=== PATIENT | female | born 1955 ===

== ENCOUNTER 2017-12-20 12:10 | Inpatient (IN) | payer BC ==
[2017-12-20 12:30] VITALS: BMI 23.8
--- NOTE | 2017-12-20 12:37 | ED PDOC ---
Arrival/HPI - General Chief Complaint: Medical Clearance Time Seen by Provider: 12/20/17 12:35 Historian: Patient Past Medical History - Provider Review Nursing Documentation Reviewed: Yes - Infectious Disease Hx of Infectious Diseases: None - Reproductive Menopause: Yes - Cardiac Hx Cardiac Disorders: Yes Hx Hypertension: Yes - Pulmonary Hx Respiratory Disorders: No - Neurological Hx Neurological Disorder: No - HEENT Hx HEENT Disorder: No - Renal Hx Renal Disorder: No - Endocrine/Metabolic Hx Endocrine Disorders: No - Hematological/Oncological Hx Blood Disorders: No - Integumentary Hx Dermatological Disorder: No - Musculoskeletal/Rheumatological Hx Musculoskeletal Disorders: No - Gastrointestinal Hx Gastrointestinal Disorders: No - Genitourinary/Gynecological Hx Genitourinary Disorders: No - Psychiatric Hx Anxiety: Yes Hx Bipolar Disorder: Yes Hx Depression: Yes Hx Substance Use: No - Surgical History Hx Orthopedic Surgery: Yes (left shoulder) - Anesthesia Hx Anesthesia: Yes Family/Social History - Physician Review Nursing Documentation Reviewed: Yes Family/Social History: Unknown Family HX Smoking Status: Never Smoked Hx Alcohol Use: Yes Frequency of alcohol use: Daily Hx Substance Use: No Allergies/Home Meds Allergies/Adverse Reactions: Allergies iodine Allergy (Intermediate, Verified 05/29/16 17:31) Home Medications: Home Meds Medication Instructions Recorded Confirmed Escitalopram [Lexapro] 20 mg PO HS 04/04/15 04/04/15 clonazePAM [clonAZEPAM] 1 mg PO BID 04/04/15 04/04/15 Physical Exam Vital Signs Reviewed: Yes Vital Signs Temp Pulse Resp BP Pulse Ox 12/20/17 12:25 98.6 F 152 H 20 106/72 99 Temperature: Afebrile Blood Pressure: Normal Pulse: Tachycardic Respiratory Rate: Normal Appearance: Positive for: Well-Appearing, Non-Toxic, Comfortable Pain Distress: None Mental Status: Positive for: Alert and Oriented X 3 Medical Decision Making ED Course and Treatment: 12/20/17 Impression: Plan: -- Reassess and disposition Progress Notes: - Scribe Statement The provider has reviewed the documentation as recorded by the Ester Arroyo Provider Scribe Attestation: All medical record entries made by the Scribe were at my direction and personally dictated by me. I have reviewed the chart and agree that the record accurately reflects my personal performance of the history, physical exam, medical decision making, and the department course for this patient. I have also personally directed, reviewed, and agree with the discharge instructions and disposition. Disposition/Present on Arrival - Present on Arrival History of DVT/PE: No History of Uncontrolled Diabetes: No Urinary Catheter: No History of Decub. Ulcer: No History Surgical Site Infection Following: None - Disposition
[2017-12-20] MEDS ORDERED: Sodium Chloride 0.9% 1,000 ML IV STA ×2 (12:50→19:52)
[2017-12-20 13:04] LABS: BASO # 0.03 K/mm3 (0.0-2.0); BASO % 0.5 % (0.0-3.0); EOS % 0.3 % (1.5-5.0); GRAN # 4.55 (1.4-6.5); GRAN % 71.3 % (50.0-68.0); LYMPH # 1.3 (1.2-3.4); MEAN CELL VOLUME 89.4 fl (80.0-105.0); MEAN CORPUSCULAR HEMOGLOBIN 32.5 pg (25.0-35.0); MEAN CORPUSCULAR HGB CONC 36.3 g/dl (31.0-37.0); MEAN PLATELET VOLUME 9.6 fl (7.0-11.0); MONO # 0.4 (0.1-0.6); MONO % 6.9 % (1.0-6.0); RBC 4.62 10^6/uL (3.5-6.1); RED CELL DISTRIBUTION WIDTH 14.8 % (11.5-14.5); WHITE BLOOD COUNT 6.4 10^3/ul (4.5-11.0)
[2017-12-20 13:09] LABS: CALCIUM 8.7 mg/dL (8.4-10.5); GFR AFRICAN-AMERICAN > 60; GFR NON-AFRICAN AMERICAN > 60
[2017-12-20 13:10] LABS: ACETAMINOPHEN < 10.0 ug/ml (10.0-20.0); SALICYLATE < 1 mg/dL (2.0-20.0)
[2017-12-20 13:12] LABS: ALT/SGPT 47 U/L (7-56); AST/SGOT 172 U/L (14-36); BLOOD UREA NITROGEN 12 mg/dL (7-21)
[2017-12-20 13:14] LABS: INR 1.02 (0.93-1.08); PARTIAL THROMBOPLASTIN TIME 29.8 Seconds (25.1-36.5); PROTHROMBIN TIME 11.7 SECONDS (9.4-12.5)
--- NOTE | 2017-12-20 13:24 | ED PDOC ---
Arrival/HPI - General Historian: Patient <Chema Lan - Last Filed: 12/20/17 16:21> - General Historian: Patient <Quiana Mishra - Last Filed: 12/20/17 20:51> - General Chief Complaint: Substance Abuse Time Seen by Provider: 12/20/17 12:35 - History of Present Illness Narrative History of Present Illness (Text): 62 year old female with PMH of alcohol abuse and prior suicide attempt from depression presents to the ED after taking at least 25 1 mg Xanax pills last night. Patient was feeling depressed because left her and her two daughters have not been speaking to her. She had planned to end her life last night by taking the xanax pills. After taking the xanax pills, she started to feel some left sided abdominal pain and 2-3 episodes of vomiting. Patient also reportedly has had blood in her urine for the past month. She never followed up with the physician who gave her this information. Patient presents today with nausea, but denies vomiting, diarrhea, and abdominal pain today. Patient denies any headache, loss of consciousness, fever, shortness of breath, and chest pain. (Quiana Mishra) Past Medical History - Provider Review Nursing Documentation Reviewed: Yes - Infectious Disease Hx of Infectious Diseases: None - Reproductive Menopause: Yes - Cardiac Hx Cardiac Disorders: Yes Hx Hypertension: Yes - Pulmonary Hx Respiratory Disorders: No - Neurological Hx Neurological Disorder: No - HEENT Hx HEENT Disorder: No - Renal Hx Renal Disorder: No - Endocrine/Metabolic Hx Endocrine Disorders: No - Hematological/Oncological Hx Blood Disorders: No - Integumentary Hx Dermatological Disorder: No - Musculoskeletal/Rheumatological Hx Musculoskeletal Disorders: No - Gastrointestinal Hx Gastrointestinal Disorders: No - Genitourinary/Gynecological Hx Genitourinary Disorders: No - Psychiatric Hx Anxiety: Yes Hx Bipolar Disorder: Yes Hx Depression: Yes Hx Substance Use: No - Surgical History Hx Orthopedic Surgery: Yes (left shoulder) - Anesthesia Hx Anesthesia: Yes <Quiana Mishra - Last Filed: 12/20/17 20:51> Family/Social History - Physician Review Nursing Documentation Reviewed: Yes Family/Social History: Unknown Family HX Smoking Status: Never Smoked Hx Alcohol Use: Yes Frequency of alcohol use: Daily Amount per day: 5 Hx Substance Use: No <Quiana Mishra - Last Filed: 12/20/17 20:51> Allergies/Home Meds <Chema Lan P - Last Filed: 12/20/17 16:21> <Quiana Mishra - Last Filed: 12/20/17 20:51> Allergies/Adverse Reactions: Allergies iodine Allergy (Intermediate, Verified 12/20/17 13:37) ANAPHYLAXIS Home Medications: Home Meds Medication Instructions Recorded Confirmed clonazePAM [clonAZEPAM] 1 mg PO BID 04/04/15 12/20/17 ALPRAZolam [Xanax] 1 tab PO DAILY 12/20/17 12/20/17 Review of Systems - Physician Review All systems were reviewed & negative as marked: Yes - Review of Systems Constitutional: Fatigue Eyes: Normal ENT: Normal Respiratory: Normal Cardiovascular: Normal Gastrointestinal: Abdominal Pain, Nausea, Vomiting, Anorexia Genitourinary Female: Hematuria Musculoskeletal: Normal Skin: Normal Neurological: Normal <Quiana Mishra - Last Filed: 12/20/17 20:51> Physical Exam Vital Signs Reviewed: Yes <Chema Lan P - Last Filed: 12/20/17 16:21> Vital Signs Reviewed: Yes Temperature: Afebrile Blood Pressure: Normal Pulse: Tachycardic Respiratory Rate: Normal Appearance: Positive for: Ill-Appearing Pain Distress: None Mental Status: Positive for: Alert and Oriented X 3 Finger Stick Blood Glucose: 117 - Systems Exam Head: Present: Atraumatic, Normocephalic Pupils: Present: PERRL, Other (dilated) Extroacular Muscles: Present: EOMI Conjunctiva: Present: Normal Mouth: Present: Moist Mucous Membranes Pharnyx: Present: Normal Nose (External): Present: Atraumatic Neck: Present: Normal Range of Motion Respiratory/Chest: Present: Clear to Auscultation Cardiovascular: Present: Tachycardic Abdomen: Present: Other (depressed bowel sounds). No: Tenderness, Distention Upper Extremity: Present: Normal Inspection, Normal ROM, NORMAL PULSES Lower Extremity: Present: Normal Inspection, NORMAL PULSES, Normal ROM Neurological: Present: GCS=15, CN II-XII Intact, Speech Normal, Motor Func Grossly Intact Psychiatric: Present: Alert, Oriented x 3, Normal Insight, Normal Concentration , Depressed Mood <Quiana Mishra - Last Filed: 12/20/17 20:51> Vital Signs Temp Pulse Resp BP Pulse Ox 12/20/17 17:23 90 18 128/81 98 12/20/17 15:45 90 18 130/84 97 12/20/17 12:54 98.7 F 108 H 17 118/95 H 99 12/20/17 12:25 98.6 F 152 H 20 106/72 99 Medical Decision Making - Lab Interpretations I have reviewed the lab results: Yes - EKG Interpretation Interpreted by ED Physician: Yes Type: 12 lead EKG <Chema Lan - Last Filed: 12/20/17 16:21> <Quiana Mishra - Last Filed: 12/20/17 20:51> ED Course and Treatment: 12/20/17 In agreement with resident note, which includes further HPI details. Patient was seen and evaluated with resident, came up with plan and treatment together. (Chema Lan) Impression: 62 year old female presents with overdose of at least 25 1mg Xanax pills who presents with a diffuse tremor. Assessment: Overdose of Xanax Rule out alcohol intoxication, alcohol withdrawal, opiate overdose, opiate withdrawal, multidrug overdose or withdrawal Plan: Patient was seen and examined by resident. Patient had a depressed mood and admitted she tried to kill herself last night, but denies having suicidal ideations today. Psychiatry will be consulted and she will be put on a 1:1 for her prior suicidal ideations, alcohol dependence, and xanax overdose. Due to patient's nausea, patient will receive zofran 4 mg. Due to potential overdose of xanax, a full urine drug screen, blood alcohol level, and EKG will be done to evaluate if she has taken any other medications and if they've had an effect on cardiac function. Poison control has been called to consult on the case to ensure the patient is stable. CBC and CMP will be done to evaluate for any change in electrolyte levels or blood counts after taking xanax and vomiting last night. Urinanalysis will be done due to the reported blood in her urine. IV NS 0.9% 1 L will be given due her dehydration status. 12/20/17 13:36 EKG was completed which showed normal sinus rhythm and minimal QTc prolongation in the 460s. No intervention needed for minimally prolonged QTc. 12/20/17 15:36 Urine toxicology was assessed. Patient was negative except for benzodiazepines ( Xanax). Patient had a very low blood alcohol level, acetaminophen, and salicylate level. Patient is stable, mildly tachycardic, and has a mild tremor. AST was elevated at 172. ALP was elevated at 176. 12/20/17 15:39 Poison control was called and told to wait an hour to reevaluate her one more time. Advised to not give her flumazenil. 12/20/17 20:51 Patient will be admitted to psychiatry for prior suicide attempt. (Quiana Mishra) - Lab Interpretations Lab Results: 12/20/17 12:50 12/20/17 12:50 Lab Results 12/20/17 13:34: Urine Opiates Screen Negative, Urine Methadone Screen Negative, Ur Barbiturates Screen Negative, Ur Phencyclidine Scrn Negative, Ur Amphetamines Screen Negative, U Benzodiazepines Scrn Positive H, U Oth Cocaine Metabols Negative, U Cannabinoids Screen Negative 12/20/17 13:34: Urine Color Dark yellow, Urine Appearance Sl cloudy, Urine pH 6.0, Ur Specific [place] >= 1.030, Urine Protein 100 H, Urine Glucose (UA) Negative, Urine Ketones 15 H, Urine Blood Moderate H, Urine Nitrate Negative, Urine Bilirubin Moderate H, Urine Urobilinogen 4.0 H, Ur Leukocyte Esterase Trace H, Urine RBC 0 - 2, Urine WBC 1 - 3, Ur Epithelial Cells 1 - 3, Urine Bacteria Few 12/20/17 13:20: Alcohol, Quantitative < 10 12/20/17 12:50: Salicylates < 1 L, Acetaminophen < 10.0 L 12/20/17 12:50: Sodium 139, Potassium 3.5 L, Chloride 98, Carbon Dioxide 23, Anion Gap 21 H, BUN 12, Creatinine 0.8, Est GFR ( Amer) > 60, Est GFR ( Non-Af Amer) > 60, Random Glucose 136 H, Calcium 8.7, Total Bilirubin 3.5 H, AST 172 H, ALT 47, Alkaline Phosphatase 176 H, Total Protein 7.9, Albumin 4.0, Globulin 3.9, Albumin/Globulin Ratio 1.0 L 12/20/17 12:50: PT 11.7, INR 1.02, APTT 29.8 12/20/17 12:50: WBC 6.4, RBC 4.62, Hgb 15.0, Hct 41.3, MCV 89.4, MCH 32.5, MCHC 36.3, RDW 14.8 H, Plt Count 228, MPV 9.6, Gran % 71.3 H, Lymph % (Auto) 21.0 L, [place] % (Auto) 6.9 H, Eos % (Auto) 0.3 L, Baso % (Auto) 0.5, Gran # 4.55, Lymph # (Auto) 1.3, [place] # (Auto) 0.4, Eos # (Auto) 0.0, Baso # (Auto) 0.03 - Medication Orders Current Medication Orders: Sodium Chloride (Sodium Chloride 0.9%) 1,000 mls @ 999 mls/hr IV .Q1H1M STA Stop: 12/20/17 20:52 Discontinued Medications Famotidine (Pepcid) 20 mg IVP STAT STA Stop: 12/20/17 15:33 Last Admin: 12/20/17 15:44 Dose: 20 mg IVP Administration Document 12/20/17 15:44 [facility] (Rec: 12/20/17 15:44 [facility] [id number]) Charges for Administration # of IVP Administrations 1 Sodium Chloride (Sodium Chloride 0.9%) 1,000 mls @ 999 mls/hr IV .Q1H1M STA Stop: 12/20/17 13:50 Last Admin: 12/20/17 13:06 Dose: 999 mls/hr eMAR Start Stop Document 12/20/17 13:06 [facility] [place] (Rec: 12/20/17 13:06 [facility] [id number]) Intravenous Solution Start Date 12/20/17 Start Time 13:00 End Date 12/20/17 End time 14:01 Total Infusion Time 61 Lorazepam (Ativan) 1 mg PO ONCE ONE PRN Reason: Protocol Stop: 12/20/17 15:32 Last Admin: 12/20/17 15:44 Dose: 1 mg Lorazepam (Ativan) 1 mg IVP ONCE ONE PRN Reason: Protocol Stop: 12/20/17 18:10 Last Admin: 12/20/17 18:43 Dose: 1 mg IVP Administration Document 12/20/17 18:43 [facility] [place] (Rec: 12/20/17 18:43 [facility] [id number]) Charges for Administration # of IVP Administrations 1 Ondansetron HCl (Zofran Inj) 4 mg IVP STAT STA Stop: 12/20/17 13:12 Last Admin: 12/20/17 13:19 Dose: 4 mg IVP Administration Document 12/20/17 13:19 [facility] [place] (Rec: 12/20/17 13:19 [facility] [id number]) Charges for Administration # of IVP Administrations 1 Ondansetron HCl (Zofran Inj) 4 mg IVP STAT STA Stop: 12/20/17 16:45 Last Admin: 12/20/17 17:19 Dose: 4 mg IVP Administration Document 12/20/17 17:19 [facility] (Rec: 12/20/17 17:19 [facility] [id number]) Charges for Administration # of IVP Administrations 1 - Scribe Statement The provider has reviewed the documentation as recorded by the Scribe <Chema Lan - Last Filed: 12/20/17 16:21> - PA / COMMUNITY ENGAGEMENT SPECIALIST / Resident Statement / has reviewed & agrees with the documentation as recorded. MD/ has examined the patient and agrees with the treatment plan. <Quiana Mishra - Last Filed: 12/20/17 20:51> - Scribe Statement Faiza Arroyo Provider Scribe Attestation: All medical record entries made by the Scribe were at my direction and personally dictated by me. I have reviewed the chart and agree that the record accurately reflects my personal performance of the history, physical exam, medical decision making, and the department course for this patient. I have also personally directed, reviewed, and agree with the discharge instructions and disposition. (Chema Lan) Disposition/Present on Arrival <Chema Lan - Last Filed: 12/20/17 16:21> - Present on Arrival Any Indicators Present on Arrival: No History of DVT/PE: No History of Uncontrolled Diabetes: No Urinary Catheter: No History of Decub. Ulcer: No History Surgical Site Infection Following: None - Disposition Have Diagnosis and Disposition been Completed?: Yes Disposition Time: 20:50 Patient Plan: Admission <Quiana Mishra - Last Filed: 12/20/17 20:51> - Disposition Diagnosis: Xanax use disorder, mild, abuse Disposition: HOSPITALIZED Patient Problems: Current Active Problems Problem Status Onset Xanax use disorder, mild, abuse Acute Condition: STABLE
[2017-12-20 13:43] LABS: URINE APPEARANCE SL CLOUDY (CLEAR); URINE BILIRUBIN MODERATE (NEGATIVE); URINE BLOOD MODERATE (NEGATIVE); URINE COLOR DARK YELLOW (YELLOW); URINE GLUCOSE (UA) NEGATIVE (NEGATIVE); URINE LEUKOCYTE ESTERASE TRACE Leu/uL (NEGATIVE); URINE PROTEIN 100 mg/dL (<30 mg/dL)
[2017-12-20 13:47] LABS: URINE BACTERIA FEW (NEG); URINE RBC 0 - 2 /hpf (0-2)
[2017-12-20 14:22] LABS: BARBITURATES, UR NEGATIVE (NEGATIVE); BENZODIAZEPINES, UR POSITIVE (NEGATIVE); OPIATES, UR NEGATIVE (NEGATIVE); PHENCYCLIDINE, UR NEGATIVE (NEGATIVE)
--- NOTE | 2017-12-20 17:00 | CARD ---
APPROVED REPORT Date of service: 12/20/2017 EKG Measurement Heart [id number] <Conclusion> Sinus tachycardia Possible Left atrial enlargement Cannot rule out Inferior infarct, age undetermined Abnormal ECG
[2017-12-20] MEDS ORDERED: Magnesium Hydroxide Susp 30 ml UD PO PRN (22:06)
[2017-12-21 03:14] VITALS: O2SAT 97
[2017-12-21] MEDS: Alum-Mag Hydrox-Simethicone Susp (30 mL) PO PRN ×2 (04:57→20:35)
--- NOTE | 2017-12-21 06:32 | PCM.BM ---
<Thomas Smith O - Last Filed: 12/21/17 06:31> Treatment Plan Problems - Problems identified on initial assessmt Anxiety Date Initiated: 12/20/17 Time Initiated: 22:00 Assessment reference: NA Status: Active Hoplesness Date Initiated: 12/20/17 Time Initiated: 22:00 Assessment reference: NA Status: Active Treatment assets and liabiliti Patient Assests: cooperative, ADL independent, good interpersonal skills Patient Liabilities: poor support system - Milieu Protocol Maintain good personal hygiene: daily Encourage regular showers, daily Remind patient to perform daily oral care, daily Assist patient to perform ADL's Maintain personal safety: daily Educate patient to report safety concerns to staff, daily Monitor environment for contraband/sharps Medication safety: Monitor for expected outcome, potential side effects: daily, Assess barriers to learning: daily, Assess readiness for medication education: daily Family Contact Family involvement: Patient does not wish Family/SO involvement Discharge/Continuing Care - Education Needs Education Needs: Patient Medication, Patient Diagnosis/Disease Process, Patient Coping Skills - Discharge Discharge Criteria: Free of Suicidal thoughts, Normal sleep pattern <Heather Hills Y - Last Filed: 12/22/17 08:33> Family Contact Family involvement: Famliy/SO not involved <Gloria Peoples A - Last Filed: 12/25/17 09:20> - Diagnosis (1) MDD (major depressive disorder) Status: Acute Interventions: 12/25/17 09:20 Psychoeducation Psychopharmacology/adjustment of medications as needed/ monitoring possible side effects Evaluate pt on daily basis Compliance with medications and follow up appointments Suicide and homicide risk assessment and prevention Relapse prevention Reduction of symptoms Improve functional status Family involvement As outpatient: cognitive behavioral therapy (2) Alcohol use disorder Status: Acute Interventions: 12/25/17 09:20 Monitoring withdrawal symptoms Medical detoxification Pharmacotherapy for alcohol/benzos/opioid dependence Maintaining sobriety Relapse prevention Possible rehabilitation Motivational interviewing 12-step programs: AA meetings (3) DESTINEE (generalized anxiety disorder) Status: Acute Interventions: 12/25/17 09:20 Psychoeducation Psychopharmacology/adjustment of medications as needed/ monitoring possible side effects Evaluate pt on daily basis Discussion of importance of being compliant with medications and follow up appointments Suicide and homicide risk assessment and prevention, coping strategies, safety plan Reduction of symptoms Relaxation techniques and breathing exercises Improve functional status Family involvement Cognitive behavioral therapy as outpatient
[2017-12-21 07:40] LABS: HDL CHOLESTEROL 31 mg/dL (29-60)
[2017-12-21 07:59] LABS: LDL CHOLESTEROL < 30 mg/dL (0-129)
[2017-12-21] MEDS: Pantoprazole 20 mg EC Tab PO SCH ×2 (10:34→18:22)
[2017-12-21] MEDS: Multivitamin Therapeutic Tab PO SCH (10:34)
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
[2017-12-21] MEDS: Lubricant Eye Drops UD OU SCH ×3 (13:16→22:01)
[2017-12-21] MEDS: Tobramycin/Dexamethasone (Tobradex) Opth Sol (2.5 ml) OU SCH (18:23)
--- NOTE | 2017-12-21 23:01 | PN ---
DATE: 12/21/2017 SUBJECTIVE: The patient was admitted to the Behavioral Care Unit for depression. This patient is a 62-year-old female. She presented in the emergency room with depression. She also had pain in the left lower quadrant of the abdomen. She also has pain in the left shoulder. She has past history of hypertension. She has past history of atherosclerotic heart disease. She also has history of hyperlipidemia, history of alcoholism, and suicidal tendency. The patient was seen this afternoon on consultation. The patient is able to ambulate. She is pleasant, talks and answers all questions. She is complaining of burning sensation in both eyes currently. The patient also has tearing from both eyes, and she states she has pain on the left side of the face. PHYSICAL EXAMINATION VITAL SIGNS: The patient is afebrile. Pulse is 70, blood pressure 119/80, respirations are 20, O2 sat is 97% on room air, temperature 98.1. HEENT: The patient's head is normocephalic. Examination of the eyes, the patient shows evidence of mild redness in the conjunctiva. There is discharge in both eyes and the patient's vision on casual examination has no deficits noted at this time. She has blurred vision on the left eye, she says. LUNGS: Trachea central. Breath sounds are vesicular. No adventitious sounds. HEART: Normal sinus rhythm. S1 and S2 present. No murmurs. ABDOMEN: Soft. Liver and spleen not palpable. CENTRAL NERVOUS SYSTEM: No focal neurological deficits are noted. LABORATORY DATA: The patient's blood work done yesterday shows hemoglobin A1C of 5.4. The patient's cholesterol is 294, triglyceride 1532. The patient's liver enzymes are within normal range except the alkaline phosphatase is slightly elevated. The patient's CBC, white count is 6400, differential is within normal range. The patient's urinalysis, there is evidence of bilirubin in the urine. She also has evidence of blood in the urine, and WBC is only from 0 to 2. This does not suggest that the patient has any infection at this time, but the patient might have a [employer] problem or hematuria associated with renal problem. MEDICATIONS: The patient was placed on TobraDex eye drops on both eyes, one drop every 8 hours, and we will continue current management. We will place the patient on heart-healthy diet and place on statin. The list of medications that the patient is on at this time, the patient gets Ativan, folic acid. The patient is on Paxil, pantoprazole. We will add Lipitor 20 mg daily and we will also add medication for triglyceride elevation. The patient's condition is clinically acute. Behavioral condition is acute. Medical condition needs medical treatment for the conjunctivitis that appears to be present at this time. We will follow up. Vale Puentes MD TR[facility]
[2017-12-22] MEDS: Pantoprazole 20 mg EC Tab PO SCH ×2 (06:19→17:46)
[2017-12-22 07:56] LABS: BLOOD UREA NITROGEN 6 mg/dL (7-21); CALCIUM 8.9 mg/dL (8.4-10.5); GFR AFRICAN-AMERICAN > 60; GFR NON-AFRICAN AMERICAN > 60
[2017-12-22] MEDS: Multivitamin Therapeutic Tab PO SCH (09:04)
[2017-12-22] MEDS ORDERED: Potassium Chloride 20 mEq ER Tab PO ONE (09:10)
[2017-12-22] MEDS: Tobramycin/Dexamethasone (Tobradex) Opth Sol (2.5 ml) OU SCH ×3 (09:15→18:08)
--- NOTE | 2017-12-22 09:58 | PCM.PYCHPN ---
<Bekah Hardy - Last Filed: 12/22/17 10:20> Psychiatric Progress Note - Psychiatric Progress Note Patient seen today, length of contact: 30 mins Patient Chief Complaint: My and I are not together and all my kids took his side. I was just staying home taking care of my dog for the past 2 weeks, sleeping all day. I was drinking a whole bottle of pinot grigio every day and Klonopin. I just decided one day to keep taking Xanax because I felt like it didnt matter anymore. I was going to call my friend and tell her to come get my dog but then I started feeling sick so I called her to bring me to the hospital. Medical Problems: ?psoriatic arthritis Diagnostic Results: Vital Signs Temp Pulse Resp BP Pulse Ox 12/22/17 06:56 98 F 67 19 130/82 12/21/17 07:38 98.1 F 70 20 119/80 12/21/17 05:24 18 12/20/17 21:26 85 18 128/81 97 12/20/17 17:23 90 18 128/81 98 12/20/17 15:45 90 18 130/84 97 12/20/17 12:54 98.7 F 108 H 17 118/95 H 99 12/20/17 12:25 98.6 F 152 H 20 106/72 99 12/20/17 12:50 12/22/17 07:00 Lab Results 12/22/17 07:00: Sodium 144, Potassium 3.3 L, Chloride 103, Carbon Dioxide 31, Anion Gap 14, BUN 6 L, Creatinine 0.8, Est GFR ( Amer) > 60, Est GFR (Non -Af Amer) > 60, Random Glucose 98, Calcium 8.9 12/21/17 07:00: Hemoglobin A1c 5.4 12/21/17 07:00: Triglycerides 1532 H, Cholesterol 294 H, LDL Cholesterol Direct < 30, HDL Cholesterol 31 12/20/17 13:34: Urine Opiates Screen Negative, Urine Methadone Screen Negative, Ur Barbiturates Screen Negative, Ur Phencyclidine Scrn Negative, Ur Amphetamines Screen Negative, U Benzodiazepines Scrn Positive H, U Oth Cocaine Metabols Negative, U Cannabinoids Screen Negative 12/20/17 13:34: Urine Color Dark yellow, Urine Appearance Sl cloudy, Urine pH 6.0, Ur Specific [place] >= 1.030, Urine Protein 100 H, Urine Glucose (UA) Negative, Urine Ketones 15 H, Urine Blood Moderate H, Urine Nitrate Negative, Urine Bilirubin Moderate H, Urine Urobilinogen 4.0 H, Ur Leukocyte Esterase Trace H, Urine RBC 0 - 2, Urine WBC 1 - 3, Ur Epithelial Cells 1 - 3, Urine Bacteria Few 12/20/17 13:20: Alcohol, Quantitative < 10 12/20/17 12:50: Salicylates < 1 L, Acetaminophen < 10.0 L 12/20/17 12:50: Sodium 139, Potassium 3.5 L, Chloride 98, Carbon Dioxide 23, Anion Gap 21 H, BUN 12, Creatinine 0.8, Est GFR ( Amer) > 60, Est GFR ( Non-Af Amer) > 60, Random Glucose 136 H, Calcium 8.7, Total Bilirubin 3.5 H, AST 172 H, ALT 47, Alkaline Phosphatase 176 H, Total Protein 7.9, Albumin 4.0, Globulin 3.9, Albumin/Globulin Ratio 1.0 L 12/20/17 12:50: PT 11.7, INR 1.02, APTT 29.8 12/20/17 12:50: WBC 6.4, RBC 4.62, Hgb 15.0, Hct 41.3, MCV 89.4, MCH 32.5, MCHC 36.3, RDW 14.8 H, Plt Count 228, MPV 9.6, Gran % 71.3 H, Lymph % (Auto) 21.0 L, [place] % (Auto) 6.9 H, Eos % (Auto) 0.3 L, Baso % (Auto) 0.5, Gran # 4.55, Lymph # (Auto) 1.3, [place] # (Auto) 0.4, Eos # (Auto) 0.0, Baso # (Auto) 0.03 DSM 5 Symptoms Update: Rosetta Wagn is a 62 yo female with a history of alcohol use disorder and depression who was brought to the ED by her friend after overdosing on Xanax and alcohol. The patient reports being increasingly depressed over the past 2 weeks. She states this is primarily due to her ex- and her fighting. She says they got about a year ago, but they were trying to work things out in October. She says this was going well for a little while until she found out he was with another woman. They then got into a verbal altercation and he left. The patient also says that all of her kids and the grandkid that she raised have taken his side and stopped talking to her. For the past 2 weeks, the patient says she has been staying home in bed all day sleeping and drinking alcohol. She says the only thing she got up to do was feed her dog, who she describes as the only thing she lives for. She says he did not plan to commit suicide, but 2 days ago, after drinking a whole bottle of wine, she started taking Xanax one at a time to feel relief. She then says at one point, she thought I dont care, and she continued to take the pills. She thought about leaving a message with her friend to take care of her dog. When she finished nearly the whole bottle of Xanax (she estimates 20-25 pills), she started feeling physically ill with abdominal pain and nausea, so she called her friend to bring her to the hospital. When asked how she feels about being alive now, she responds, Im not ecstatic but there are things that I need to do like take care of my house. She also says she has mixed feelings about suicide because she was raised [employer]ianism. She appears to be remorseful about the event. She currently denies SI. Patient is seen this morning in the dining room. She states that she had some trouble sleeping. She is also complaining about stomach pain. She presents with improved grooming/hygiene from yesterday. She says she is motivated to get better. She is compliant and tolerating medications well without side effects. Her appetite is good. The hospitalist saw the patient yesterday. She started a statin and fenofibrate for the patients cholesterol/TG. The patient was also diagnosed with conjunctivitis and tobramycin/dexamethasone was started. The patient is still complaining of itchy eyes and discharge. The patient was instructed to wash her hands frequently and change her pillowcase daily. Medical student obtained collateral from the patients friend, Jessica, who brought her to the ED: She states that the patients anxiety and depression symptoms are not new and have persisted for years. However, she says they have worsened considerably since the patients divorce with the her , approximately 8 months ago. The divorce also caused strain on the relationship with the patients children. Prior to the divorce, the friend claims that the patient was much more outgoing and that her only anxiety stemmed from the patients concerns for her UTIs. Also, she claims the patient has never drank as much alcohol as she did before the divorce. The friend also says that the patient has expressed transient thoughts of harming herself recently, but they never seemed severe/serious. She also noted that the patient has one suicide attempt via overdose 1-2 yrs ago. The friend also confirmed that the patient was the one who initiated the visit to the hospital by calling and asking her to bring her to the hospital after she overdosed on Xanax and alcohol. Medication Change: No Medical Record Reviewed: Yes Consults ordered or reviewed: medicine Mental Status Examination - Cognitive Function Orientation: Person, Place, Situation, Time Memory: Intact Attention: WNL Concentration: WNL Association: WNL Fund of Knowledge: WN Decription of patient's judgement and insights: good insight and judgment - Mood Mood: Depressed (but improved from admission) - Affect Affect: Constricted - Speech Speech: Appropriate, Soft - Formal Thought Process Formal Thought Process: No Impairment - Suicidal Ideation Suicidal Ideation: No - Homicidal Ideation Homicidal Ideation: No Goal/Treatment Plan - Goal/Treatment Plan Need for Continued Stay: Remain at risks for inpatient hospitalization, Severe depression anxiety, Discharge may exacerbated symptoms, Severe functional impairment Progress Toward Problem(s) and Goals/Treatment Plan: 1. Paxil 10 mg for depression and anxiety 2. Remeron 15 mg qhs prn for mood, sleep, and appetite- required yesterday (12/21 ) 3. Sonata 5 mg qhs prn for sleep- required yesterday (12/21) 4. Ativan 2 mg qid for withdrawal, anxiety 3. Ativan 2 mg q6hrs prn for withdrawal, anxiety 4. Zofran 4 mg q8hrs prn for nausea 5. Protonix 20 mg bid for GERD 5. Maalox 30 mL daily prn for dyspepsia- required yesterday (12/21) 6. Multivitamin, folic acid 1 mg, thiamine 100 mg daily for chronic alcohol use 7. Medicine consult - Atorvastatin 20 daily with dinner - Fenofribrate 145 mg daily - Potassium Chloride 20 mEQ once - Tobradex 1 mL OU tid - Artificial tears 0.3 mL OU qid Milieu and group therapy SW consult for discharge planning Patient was educated about risk/benefits and alternatives of medications, coping strategies (safety plan, suicide prevention), relapse prevention, importance of follow up with psychiatrist and therapist, stay away from drugs/ alcohol/smoking. Estimated Date of D/C: 12/25/17 - Smoking Cessation Smoking Cessation Initiated: No Reason for not providing: Patient denies tobacco use. <Gloria Peoples - Last Filed: 12/22/17 15:04> Psychiatric Progress Note - Psychiatric Progress Note Medical Problems: patient was seen by medical team, consult appreciated, please see notes more detailed information Diagnostic Results: Vital Signs Temp Pulse Resp BP Pulse Ox 12/22/17 06:56 98 F 67 19 130/82 12/21/17 07:38 98.1 F 70 20 119/80 12/21/17 05:24 18 12/20/17 21:26 85 18 128/81 97 12/20/17 17:23 90 18 128/81 98 12/20/17 15:45 90 18 130/84 97 12/20/17 12:54 98.7 F 108 H 17 118/95 H 99 12/20/17 12:25 98.6 F 152 H 20 106/72 99 DSM 5 Symptoms Update: patient was followed up today in her room, patient presented with some improvement with her symptoms, obviously tries itchiness better, patient was seen by medical team, antibiotics eyedrops was started, patient also was started on medication for dyslipidemia and liver enzymes, patient also had low potassium level which was supplemented by potassium by medical team, please see notes for more detailed information. USG of abdomen and liver ordered by medical team. Collaterals were obtained from patient friend please see above. Patient complained that she was not able to fall asleep and stay asleep but patient rationalized that fact that it was her first night in the unit and pt did not get used to the new environment. pt still has transient thoughts of hopelessness, helplessness. Denied thoughts of harming herself or others. so far patient tolerates medications well, no side effects observed or reported , aims 0, no EPS. Patient does not have any physical signs of withdrawals, vital signs are within normal limits. Medication Change: Yes (paxil increased, sonata increased) Mental Status Examination - Cognitive Function Attention: Poor (with some improvement) Concentration: Poor (some improvement) - Mood Mood: Anxious - Affect Affect: Constricted (t times reactive) - Formal Thought Process Formal Thought Process: Other (thought process is over inclusive) Goal/Treatment Plan - Goal/Treatment Plan Progress Toward Problem(s) and Goals/Treatment Plan: Paxil was increased to 20 mg at the nighttime and Sonata was increased to 10 mg at the nighttime
--- NOTE | 2017-12-22 11:20 | CP.PCM.PN ---
Subjective - Date & Time of Evaluation Date of Evaluation: 12/22/17 Time of Evaluation: 10:50 - Subjective Subjective: Patient is seen this morning. She complains of generalized weakness. Objective - Vital Signs/Intake and Output Vital Signs (last 24 hours): Temp Pulse Resp BP Pulse Ox 98 F 67 19 130/82 97 12/22/17 06:56 12/22/17 06:56 12/22/17 06:56 12/22/17 06:56 12/20/17 21:26 - Medications Medications: Current Medications Acetaminophen (Tylenol 325mg Tab) 325 mg PO Q6H PRN PRN Reason: Pain, Mild (1-3) Last Admin: 12/20/17 22:48 Dose: 325 mg Al Hydrox/Mg Hydrox/Simethicone (Maalox Plus 30 Ml) 30 ml PO DAILY PRN PRN Reason: Dyspepsia Last Admin: 12/21/17 20:35 Dose: 30 ml Artificial Tears (Refresh Opth Soln) 0.3 ml OU QID [facility] Last Admin: 12/21/17 22:01 Dose: 0.3 ml Atorvastatin Calcium (Lipitor) 20 mg PO DIN [facility] Fenofibrate (Tricor) 145 mg PO DAILY [facility] Last Admin: 12/22/17 09:04 Dose: 145 mg Folic Acid (Folic Acid) 1 mg PO DAILY [facility] Last Admin: 12/22/17 09:04 Dose: 1 mg Lorazepam (Ativan) 2 mg PO QID [facility]ETH PRN Reason: Protocol Last Admin: 12/22/17 09:04 Dose: 2 mg Lorazepam (Ativan) 2 mg PO Q6H PRN; Protocol PRN Reason: anxiety/agitation Magnesium Hydroxide (Milk Of Magnesia) 30 ml PO DAILY PRN PRN Reason: Constipation Mirtazapine (Remeron) 15 mg PO HS PRN PRN Reason: insomnia/depression Last Admin: 12/22/17 00:54 Dose: 15 mg Multivitamins (Thera Tab) 1 tab PO 0800 [facility] Last Admin: 12/22/17 09:04 Dose: 1 tab Ondansetron HCl (Zofran Tab) 4 mg PO Q8H PRN PRN Reason: Nausea/Vomiting Last Admin: 12/21/17 08:32 Dose: 4 mg Pantoprazole Sodium (Protonix Ec Tab) 20 mg PO 0600,1600 [facility] Last Admin: 12/22/17 06:19 Dose: 20 mg Paroxetine HCl (Paxil) 10 mg PO HS [facility] Last Admin: 12/21/17 21:52 Dose: 10 mg Potassium Chloride (K-Dur 20 Meq Er Tab) 20 meq PO BRK [facility] Thiamine HCl (Vitamin B1 Tab) 100 mg PO DAILY [facility] Last Admin: 12/22/17 09:04 Dose: 100 mg Tobramycin/Dexamethasone (Tobradex Opht Susp) 1 ml OU TID [facility] Last Admin: 12/22/17 09:15 Dose: 1 drop Zaleplon (Sonata) 5 mg PO HS PRN PRN Reason: Insomnia Last Admin: 12/21/17 21:52 Dose: 5 mg - Labs Labs: 12/22/17 07:00 PT 11.7 SECONDS (9.4-12.5) 12/20/17 12:50 INR 1.02 (0.93-1.08) 12/20/17 12:50 APTT 29.8 Seconds (25.1-36.5) 12/20/17 12:50 - Constitutional Appears: No Acute Distress - Cardiovascular Exam Cardiovascular Exam: +S1, +S2 - GI/Abdominal Exam GI & Abdominal Exam: Soft. absent: Tenderness Assessment and Plan - Assessment and Plan (Free Text) Assessment: History of alcohol abuse Elevated liver enzymes Hyperlipidemia/hypertriglyceridemia Hypokalemia Plan: Potassium has been replaced. Liver enzymes are elevated and blood seen in urine. Will order ultrasound of abdomen to check liver and kidney. Repeat urinalysis. continue psychiatric care
[2017-12-22] MEDS: Lubricant Eye Drops UD OU SCH ×4 (12:03→21:29)
--- NOTE | 2017-12-22 14:40 | US ---
Date of service: 12/22/2017 HISTORY: abnormal liver enzymes, hematuria, COMPARISON: None. TECHNIQUE: Grayscale imaging was performed. FINDINGS: LIVER: Measures 18.6 cm. There is diffuse increased echogenicity of the liver parenchyma. No mass. No intrahepatic bile duct dilatation. GALLBLADDER: There are no gallstones, wall thickening or pericholecystic fluid. The sonographic Mcneal's sign is negative. COMMON BILE DUCT: Measures 3.8 mm. No stones. No dilatation. PANCREAS: Unremarkable as visualized. No mass. No ductal dilatation. RIGHT KIDNEY: Measures 8.2cm. Normal echogenicity. No calculus, mass, or hydronephrosis. LEFT KIDNEY: Measures 9.6cm. Normal echogenicity. No calculus, mass, or hydronephrosis. SPLEEN: Normal in size and contour. No mass. AORTA: No aneurysmal dilatation. IVC: Unremarkable. OTHER FINDINGS: None. IMPRESSION: Mild hepatomegaly. Diffuse increased echogenicity in the liver may reflect hepatic steatosis however parenchymal infectious/ inflammatory etiologies cannot be entirely excluded. Clinical and laboratory correlation is advised. No cholelithiasis or biliary dilatation.
[2017-12-22 21:37] LABS: URINE APPEARANCE CLEAR (CLEAR); URINE BILIRUBIN NEGATIVE (NEGATIVE); URINE BLOOD TRACE-INTACT (NEGATIVE); URINE COLOR YELLOW (YELLOW); URINE GLUCOSE (UA) NEGATIVE (NEGATIVE); URINE LEUKOCYTE ESTERASE NEGATIVE Leu/uL (NEGATIVE); URINE PROTEIN NEGATIVE mg/dL (<30 mg/dL); URINE UROBILINOGEN 0.2 E.U./dL (<1 E.U./dL)
[2017-12-22 21:52] LABS: URINE RBC 0 - 2 /hpf (0-2); URINE WBC NEGATIVE /hpf (0-6)
[2017-12-23] MEDS: Pantoprazole 20 mg EC Tab PO SCH ×2 (06:34→17:16)
[2017-12-23] MEDS ORDERED: Potassium Chloride 20 mEq ER Tab PO SCH (08:00)
[2017-12-23 08:07] LABS: ALB/GLOB RATIO 1.1 (1.1-1.8); ALBUMIN 3.8 g/dL (3.0-4.8); ALT/SGPT 53 U/L (7-56); AST/SGOT 101 U/L (14-36); BILIRUBIN,DIRECT 0.4 mg/dL (0.0-0.4); BLOOD UREA NITROGEN 9 mg/dL (7-21); CALCIUM 9.4 mg/dL (8.4-10.5); GFR AFRICAN-AMERICAN > 60; GFR NON-AFRICAN AMERICAN > 60
[2017-12-23] MEDS: Multivitamin Therapeutic Tab PO SCH (09:00)
[2017-12-23] MEDS: Lubricant Eye Drops UD OU SCH ×4 (09:01→21:23)
[2017-12-23] MEDS: Tobramycin/Dexamethasone (Tobradex) Opth Sol (2.5 ml) OU SCH ×3 (09:01→17:17)
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
--- NOTE | 2017-12-23 17:27 | CP.PCM.PN ---
Subjective - Date & Time of Evaluation Date of Evaluation: 12/23/17 Time of Evaluation: 08:00 - Subjective Subjective: Patient's eye is improving. Objective - Vital Signs/Intake and Output Vital Signs (last 24 hours): Temp Pulse Resp BP Pulse Ox 98.0 F 116 H 20 108/73 97 12/23/17 07:10 12/23/17 16:00 12/23/17 07:10 12/23/17 16:00 12/20/17 21:26 - Medications Medications: Current Medications Acetaminophen (Tylenol 325mg Tab) 325 mg PO Q6H PRN PRN Reason: Pain, Mild (1-3) Last Admin: 12/20/17 22:48 Dose: 325 mg Al Hydrox/Mg Hydrox/Simethicone (Maalox Plus 30 Ml) 30 ml PO DAILY PRN PRN Reason: Dyspepsia Last Admin: 12/21/17 20:35 Dose: 30 ml Artificial Tears (Refresh Opth Soln) 0.3 ml OU QID [facility] Last Admin: 12/23/17 17:17 Dose: 0.3 ml Atorvastatin Calcium (Lipitor) 20 mg PO DIN [facility] Last Admin: 12/23/17 17:16 Dose: 20 mg Fenofibrate (Tricor) 145 mg PO DAILY [facility] Last Admin: 12/23/17 09:00 Dose: 145 mg Folic Acid (Folic Acid) 1 mg PO DAILY [facility] Last Admin: 12/23/17 09:01 Dose: 1 mg Lorazepam (Ativan) 2 mg PO Q6H PRN; Protocol PRN Reason: anxiety/agitation Lorazepam (Ativan) 2 mg PO TID ELIZABETH PRN Reason: Protocol Last Admin: 12/23/17 17:16 Dose: 2 mg Magnesium Hydroxide (Milk Of Magnesia) 30 ml PO DAILY PRN PRN Reason: Constipation Mirtazapine (Remeron) 15 mg PO HS PRN PRN Reason: insomnia/depression Last Admin: 12/23/17 02:08 Dose: 15 mg Multivitamins (Thera Tab) 1 tab PO 0800 [facility] Last Admin: 12/23/17 09:00 Dose: 1 tab Ondansetron HCl (Zofran Tab) 4 mg PO Q8H PRN PRN Reason: Nausea/Vomiting Last Admin: 12/21/17 08:32 Dose: 4 mg Pantoprazole Sodium (Protonix Ec Tab) 20 mg PO 0600,1600 [facility] Last Admin: 12/23/17 17:16 Dose: 20 mg Paroxetine HCl (Paxil) 30 mg PO HS ELIZABETH Thiamine HCl (Vitamin B1 Tab) 100 mg PO DAILY [facility] Last Admin: 12/23/17 09:00 Dose: 100 mg Tobramycin/Dexamethasone (Tobradex Opht Susp) 1 ml OU TID [facility] Last Admin: 12/23/17 17:17 Dose: 1 drop Zaleplon (Sonata) 10 mg PO HS PRN PRN Reason: Insomnia Last Admin: 12/22/17 21:28 Dose: 10 mg - Labs Labs: 12/23/17 07:30 PT 11.7 SECONDS (9.4-12.5) 12/20/17 12:50 INR 1.02 (0.93-1.08) 12/20/17 12:50 APTT 29.8 Seconds (25.1-36.5) 12/20/17 12:50 - Constitutional Appears: No Acute Distress - Respiratory Exam Respiratory Exam: Clear to Ausculation Bilateral, NORMAL BREATHING PATTERN - Cardiovascular Exam Cardiovascular Exam: +S1, +S2 - GI/Abdominal Exam GI & Abdominal Exam: Soft, Normal Bowel Sounds. absent: Tenderness - Neurological Exam Neurological Exam: Alert, Awake, Oriented x3 Assessment and Plan - Assessment and Plan (Free Text) Assessment: Conjunctivitis Elevated liver enzymes History of alcohol abuse Major depression Anxiety disorder Plan: Conjunctivitis of eye is improving. continue Tobradex eye drops. Potassium is now normalized. Will discontinue daily potassium supplementation. Liver enzymes trending downward. Repeat enzymes.
[2017-12-24] MEDS: Pantoprazole 20 mg EC Tab PO SCH ×2 (08:01→16:36)
[2017-12-24 08:08] LABS: ALB/GLOB RATIO 1.1 (1.1-1.8); ALBUMIN 3.4 g/dL (3.0-4.8); ALT/SGPT 56 U/L (7-56); AST/SGOT 95 U/L (14-36); BLOOD UREA NITROGEN 10 mg/dL (7-21); CALCIUM 9.3 mg/dL (8.4-10.5); GFR AFRICAN-AMERICAN > 60; GFR NON-AFRICAN AMERICAN > 60
[2017-12-24] MEDS: Multivitamin Therapeutic Tab PO SCH (10:14)
[2017-12-24] MEDS: Tobramycin/Dexamethasone (Tobradex) Opth Sol (2.5 ml) OU SCH ×3 (10:15→18:05)
[2017-12-24] MEDS: Lubricant Eye Drops UD OU SCH ×4 (10:16→21:22)
--- NOTE | 2017-12-24 10:19 | PN ---
DATE: 12/24/2017 LOCATION: The patient is in Behavioral Care Unit, [facility] in [place]. SUBJECTIVE: The patient was admitted with depression. The patient had abdominal pain. The patient seen this morning. She is complaining of nausea. She is awake and alert, got very nervous and anxious about her clinical condition. PHYSICAL EXAMINATION: VITAL SIGNS: The pulse is 97, blood pressure 116/76. The patient's respirations are 20, temperature 97.7. HEENT: The patient had eye infection, for which the patient is getting TobraDex, that is improving. The patient's head is normocephalic. NECK: The thyroid is not enlarged. No lymphadenopathy. LUNGS: Trachea central. Breath sounds are vesicular. No adventitious sounds. HEART: Normal sinus rhythm. S1 and S2 present. ABDOMEN: Soft. There is some tenderness in the epigastric area and left upper quadrant. The patient has no localizing signs in the abdomen. CENTRAL NERVOUS SYSTEM: She is conscious, rationale, seemed to be very afraid of her clinical condition, but she has been reassured that her clinical condition is improving. LABORATORY DATA: The patient has fatty liver based on the findings by ultrasound. The patient's urinalysis is repeated went up, infection present in the urine. The patient's laboratory test: the white count is 6400 that was the original count. The patient's chemistry, the last chemistry done this morning. The patient's liver enzymes are within normal range. AST was 172, it is 95 now. The patient's GFR is within normal range. Blood sugar is 91. The patient's lipids are not repeated. We will follow up, do a repeat tomorrow. MEDICATIONS: The patient is on Ativan 2 mg every 6 hours p.r.n. The patient is also on Ativan 2 mg t.i.d. The patient is on folic acid 1 mg. The patient is on magnesium that is milk of magnesia for constipation, Paxil 30 mg daily, pantoprazole 20 mg daily. The patient is on Remeron 15 mg daily and Sonata 10 mg daily for sleep. The patient is also getting TobraDex eyedrops, TriCor for hypertriglyceridemia. The patient is on thiamine for alcohol abuse of recent onset. The patient is on Zofran for nausea. We will continue current management and follow up. Vale Puentes MD [facility] # [id number]
--- NOTE | 2017-12-24 12:44 | PCM.PYCHPN ---
<Bekah Hardy - Last Filed: 12/24/17 14:26> Psychiatric Progress Note - Psychiatric Progress Note Patient seen today, length of contact: 30 mins Patient Chief Complaint: Im doing ok. Im feeling pretty anxious. Im also concerned about the pressure I feel in my head and sometimes I feel dizzy. Problems Identified/Issues Discussed: Suicide/ homicide prevention, past psychiatric h/o, current psychiatric symptoms , medical problems, risk/benefits and alternatives of medications, medications compliance, coping strategies, substance abuse h/o, relapse prevention, importance of follow up with psychiatrist and therapist, discharge plan. Medical Problems: ?psoriatic arthritis Diagnostic Results: Vital Signs Temp Pulse Resp BP Pulse Ox 12/22/17 06:56 98 F 67 19 130/82 12/21/17 07:38 98.1 F 70 20 119/80 12/21/17 05:24 18 12/20/17 21:26 85 18 128/81 97 12/20/17 17:23 90 18 128/81 98 12/20/17 15:45 90 18 130/84 97 12/20/17 12:54 98.7 F 108 H 17 118/95 H 99 12/20/17 12:25 98.6 F 152 H 20 106/72 99 12/20/17 12:50 12/22/17 07:00 Lab Results 12/22/17 07:00: Sodium 144, Potassium 3.3 L, Chloride 103, Carbon Dioxide 31, Anion Gap 14, BUN 6 L, Creatinine 0.8, Est GFR ( Amer) > 60, Est GFR (Non -Af Amer) > 60, Random Glucose 98, Calcium 8.9 12/21/17 07:00: Hemoglobin A1c 5.4 12/21/17 07:00: Triglycerides 1532 H, Cholesterol 294 H, LDL Cholesterol Direct < 30, HDL Cholesterol 31 12/20/17 13:34: Urine Opiates Screen Negative, Urine Methadone Screen Negative, Ur Barbiturates Screen Negative, Ur Phencyclidine Scrn Negative, Ur Amphetamines Screen Negative, U Benzodiazepines Scrn Positive H, U Oth Cocaine Metabols Negative, U Cannabinoids Screen Negative 12/20/17 13:34: Urine Color Dark yellow, Urine Appearance Sl cloudy, Urine pH 6.0, Ur Specific [place] >= 1.030, Urine Protein 100 H, Urine Glucose (UA) Negative, Urine Ketones 15 H, Urine Blood Moderate H, Urine Nitrate Negative, Urine Bilirubin Moderate H, Urine Urobilinogen 4.0 H, Ur Leukocyte Esterase Trace H, Urine RBC 0 - 2, Urine WBC 1 - 3, Ur Epithelial Cells 1 - 3, Urine Bacteria Few 12/20/17 13:20: Alcohol, Quantitative < 10 12/20/17 12:50: Salicylates < 1 L, Acetaminophen < 10.0 L 12/20/17 12:50: Sodium 139, Potassium 3.5 L, Chloride 98, Carbon Dioxide 23, Anion Gap 21 H, BUN 12, Creatinine 0.8, Est GFR ( Amer) > 60, Est GFR ( Non-Af Amer) > 60, Random Glucose 136 H, Calcium 8.7, Total Bilirubin 3.5 H, AST 172 H, ALT 47, Alkaline Phosphatase 176 H, Total Protein 7.9, Albumin 4.0, Globulin 3.9, Albumin/Globulin Ratio 1.0 L 12/20/17 12:50: PT 11.7, INR 1.02, APTT 29.8 12/20/17 12:50: WBC 6.4, RBC 4.62, Hgb 15.0, Hct 41.3, MCV 89.4, MCH 32.5, MCHC 36.3, RDW 14.8 H, Plt Count 228, MPV 9.6, Gran % 71.3 H, Lymph % (Auto) 21.0 L, [place] % (Auto) 6.9 H, Eos % (Auto) 0.3 L, Baso % (Auto) 0.5, Gran # 4.55, Lymph # (Auto) 1.3, [place] # (Auto) 0.4, Eos # (Auto) 0.0, Baso # (Auto) 0.03 Temp Pulse Resp BP Pulse Ox 98.0 F 111 H 20 116/73 97 12/23/17 07:10 12/23/17 07:10 12/23/17 07:10 12/23/17 07:10 12/20/17 21:26 Temp Pulse Resp BP Pulse Ox 97.7 F 97 H 20 116/76 97 12/24/17 07:08 12/24/17 07:08 12/24/17 07:08 12/24/17 07:08 12/20/17 21:26 DSM 5 Symptoms Update: Rosetta Wang is a 62 yo female with a history of alcohol use disorder and depression who was brought to the ED by her friend after overdosing on Xanax and alcohol. The patient reports being increasingly depressed over the past 2 weeks. She states this is primarily due to her ex- and her fighting. She says they got about a year ago, but they were trying to work things out in October. She says this was going well for a little while until she found out he was with another woman. They then got into a verbal altercation and he left. The patient also says that all of her kids and the grandkid that she raised have taken his side and stopped talking to her. For the past 2 weeks, the patient says she has been staying home in bed all day sleeping and drinking alcohol. She says the only thing she got up to do was feed her dog, who she describes as the only thing she lives for. She says he did not plan to commit suicide, but 2 days ago, after drinking a whole bottle of wine, she started taking Xanax one at a time to feel relief. She then says at one point, she thought I dont care, and she continued to take the pills. She thought about leaving a message with her friend to take care of her dog. When she finished nearly the whole bottle of Xanax (she estimates 20-25 pills), she started feeling physically ill with abdominal pain and nausea, so she called her friend to bring her to the hospital. When asked how she feels about being alive now, she responds, Im not ecstatic but there are things that I need to do like take care of my house. She also says she has mixed feelings about suicide because she was raised Alevism. She appears to be remorseful about the event. She currently denies SI. Patient is seen this morning in the conference room. She has acceptable grooming /hygiene and is dressed in casual clothing. She reports that she is very anxious. She also has several somatic complaints- dizziness, sinus pressure, and GI upset. She does say she slept well last night. She denies withdrawal symptoms, such as tremors. She presents as emotionally labile and is frequently tearful throughout the interview. She is future-oriented and discusses taking care of her medical issues. Her appetite is good. She is observed in the milieu interacting with others. The patient is compliant with medications and tolerating them well without side effects. Impression: Major depression disorder Generalized anxiety disorder Alcohol use disorder r/o substance-induced mood disorder r/o adjustment disorder r/o panic disorder Medication Change: Yes (decreased Ativan, increased Remeron) Medical Record Reviewed: Yes Consults ordered or reviewed: medicine Mental Status Examination - Cognitive Function Orientation: Person, Place, Situation, Time Memory: Intact Attention: WNL Concentration: WNL Association: WNL Fund of Knowledge: WN Decription of patient's judgement and insights: good insight, fair judgment - Mood Mood: Depressed, Anxious - Affect Affect: Constricted (at times reactive) - Speech Speech: Appropriate, Soft - Formal Thought Process Formal Thought Process: Other (thought process is over inclusive) - Suicidal Ideation Suicidal Ideation: No - Homicidal Ideation Homicidal Ideation: No Goal/Treatment Plan - Goal/Treatment Plan Need for Continued Stay: Severe depression anxiety, Discharge may exacerbated symptoms, Severe functional impairment Progress Toward Problem(s) and Goals/Treatment Plan: 1. Paxil 20 mg for depression and anxiety 2. Remeron 30 mg qhs prn for mood, sleep, and appetite- required past 3 days 3. Sonata 10 mg qhs prn for sleep- required past 2 days 4. Ativan 1.5 mg bid, 2 mg qhs for withdrawal, anxiety 3. Ativan 2 mg q6hrs prn for withdrawal, anxiety 4. Zofran 4 mg q8hrs prn for nausea- required 12/21 5. Protonix 20 mg bid for GERD 5. Maalox 30 mL daily prn for dyspepsia- required 12/21 6. Multivitamin, folic acid 1 mg, thiamine 100 mg daily for chronic alcohol use 7. Medicine consult - Atorvastatin 20 daily with dinner - Fenofribrate 145 mg daily - Potassium Chloride 20 mEQ daily - Tobradex 1 mL OU tid - Artificial tears 0.3 mL OU qid Family involvement (cousin) Milieu and group therapy SW consult for discharge planning Patient was educated about risk/benefits and alternatives of medications, coping strategies (safety plan, suicide prevention), relapse prevention, importance of follow up with psychiatrist and therapist, stay away from drugs/ alcohol/smoking. Estimated Date of D/C: 12/28/17 If changed, why: medication changes, continue to monitor - Smoking Cessation Smoking Cessation Initiated: No Reason for not providing: Patient denies tobacco use <Gloria Peoples - Last Filed: 12/24/17 16:22> Psychiatric Progress Note - Psychiatric Progress Note DSM 5 Symptoms Update: patient was seen with medical student as well as in turn, patient presented with improved personal hygiene, patient easily tearful, seems to be depressed, he shouldn't reported that her sleep improved, patient reported that she has pressure in her sinus, patient also reported that she at times have dizziness and lightheadedness, edical team was notified. Patient agreed to increase the dose of Remeron as well as starting tapering off Ativan. so far patient tolerates medications well, no side effects observed or reported , aims 0, no EPS. Goal/Treatment Plan - Goal/Treatment Plan Progress Toward Problem(s) and Goals/Treatment Plan: Paxil 30 mg Remeron 30 mg Patient will be followed up with medical team
[2017-12-25] MEDS: Pantoprazole 20 mg EC Tab PO SCH ×2 (05:09→16:57)
[2017-12-25] MEDS: Multivitamin Therapeutic Tab PO SCH (09:44)
--- NOTE | 2017-12-25 09:44 | PN ---
DATE: 12/25/2017 LOCATION: The patient is in [facility] in [place]. She is admitted to the Behavioral Care Unit. SUBJECTIVE: She was admitted with depression. The patient had history of alcoholism. The patient also has history of abdominal pain, hyperlipidemia and elevated triglycerides. The patient has been evaluated for cardiac condition in the past. She states she has had a stress test. This morning, she is complaining of some congestion and discomfort in the front of the head and she is worried about tumor in the brain. I reassured her that we are going to get an x-ray and check it out. PHYSICAL EXAMINATION: VITAL SIGNS: Pulse is 98, blood pressure 132/81, respirations are 20, O2 sat is 98% on room air. The patient's temperature is 97.8 as mentioned. HEENT: The patient's head is normocephalic. The face appears to be normal. There is some mild congestion in both eyes. LUNGS: Clear. HEART: Normal sinus rhythm. ABDOMEN: Soft. There is some tenderness in the left upper quadrant. CENTRAL NERVOUS SYSTEM: The patient has no focal deficits. MEDICATIONS: Consists of Ativan, the patient is getting that 3 times a day. The patient is on folic acid, thiamine. The patient is on Protonix. The patient is on Paxil 30 mg daily. The patient is on Remeron 30 mg at bedtime. The patient is on for sleep, which is Sonata. The patient is also getting TobraDex eyedrops 3 times a day to both eyes. If eye condition seem to be improving, we will discontinue the TobraDex. The patient is getting Zithromax for sinus infection, TriCor 145 mg daily for triglyceride elevation. Condition seem to be improving, but she still has complaints about her head and face. We will continue current management and we will follow up. Vale Puentes MD
[2017-12-25] MEDS: Lubricant Eye Drops UD OU SCH ×4 (10:54→22:13)
[2017-12-25] MEDS: Tobramycin/Dexamethasone (Tobradex) Opth Sol (2.5 ml) OU SCH ×3 (10:55→17:35)
--- NOTE | 2017-12-25 13:59 | PCM.PYCHPN ---
<Bekah Hardy - Last Filed: 12/25/17 14:06> Psychiatric Progress Note - Psychiatric Progress Note Patient seen today, length of contact: 30 mins Patient Chief Complaint: Im so-so. I had a panic attack around 5 AM. Problems Identified/Issues Discussed: Suicide/ homicide prevention, past psychiatric h/o, current psychiatric symptoms , medical problems, risk/benefits and alternatives of medications, medications compliance, coping strategies, substance abuse h/o, relapse prevention, importance of follow up with psychiatrist and therapist, discharge plan. Medical Problems: ?psoriatic arthritis Diagnostic Results: Vital Signs Temp Pulse Resp BP Pulse Ox 12/22/17 06:56 98 F 67 19 130/82 12/21/17 07:38 98.1 F 70 20 119/80 12/21/17 05:24 18 12/20/17 21:26 85 18 128/81 97 12/20/17 17:23 90 18 128/81 98 12/20/17 15:45 90 18 130/84 97 12/20/17 12:54 98.7 F 108 H 17 118/95 H 99 12/20/17 12:25 98.6 F 152 H 20 106/72 99 12/20/17 12:50 12/22/17 07:00 Lab Results 12/22/17 07:00: Sodium 144, Potassium 3.3 L, Chloride 103, Carbon Dioxide 31, Anion Gap 14, BUN 6 L, Creatinine 0.8, Est GFR ( Amer) > 60, Est GFR (Non -Af Amer) > 60, Random Glucose 98, Calcium 8.9 12/21/17 07:00: Hemoglobin A1c 5.4 12/21/17 07:00: Triglycerides 1532 H, Cholesterol 294 H, LDL Cholesterol Direct < 30, HDL Cholesterol 31 12/20/17 13:34: Urine Opiates Screen Negative, Urine Methadone Screen Negative, Ur Barbiturates Screen Negative, Ur Phencyclidine Scrn Negative, Ur Amphetamines Screen Negative, U Benzodiazepines Scrn Positive H, U Oth Cocaine Metabols Negative, U Cannabinoids Screen Negative 12/20/17 13:34: Urine Color Dark yellow, Urine Appearance Sl cloudy, Urine pH 6.0, Ur Specific [place] >= 1.030, Urine Protein 100 H, Urine Glucose (UA) Negative, Urine Ketones 15 H, Urine Blood Moderate H, Urine Nitrate Negative, Urine Bilirubin Moderate H, Urine Urobilinogen 4.0 H, Ur Leukocyte Esterase Trace H, Urine RBC 0 - 2, Urine WBC 1 - 3, Ur Epithelial Cells 1 - 3, Urine Bacteria Few 12/20/17 13:20: Alcohol, Quantitative < 10 12/20/17 12:50: Salicylates < 1 L, Acetaminophen < 10.0 L 12/20/17 12:50: Sodium 139, Potassium 3.5 L, Chloride 98, Carbon Dioxide 23, Anion Gap 21 H, BUN 12, Creatinine 0.8, Est GFR ( Amer) > 60, Est GFR ( Non-Af Amer) > 60, Random Glucose 136 H, Calcium 8.7, Total Bilirubin 3.5 H, AST 172 H, ALT 47, Alkaline Phosphatase 176 H, Total Protein 7.9, Albumin 4.0, Globulin 3.9, Albumin/Globulin Ratio 1.0 L 12/20/17 12:50: PT 11.7, INR 1.02, APTT 29.8 12/20/17 12:50: WBC 6.4, RBC 4.62, Hgb 15.0, Hct 41.3, MCV 89.4, MCH 32.5, MCHC 36.3, RDW 14.8 H, Plt Count 228, MPV 9.6, Gran % 71.3 H, Lymph % (Auto) 21.0 L, [place] % (Auto) 6.9 H, Eos % (Auto) 0.3 L, Baso % (Auto) 0.5, Gran # 4.55, Lymph # (Auto) 1.3, [place] # (Auto) 0.4, Eos # (Auto) 0.0, Baso # (Auto) 0.03 Temp Pulse Resp BP Pulse Ox 98.0 F 111 H 20 116/73 97 12/23/17 07:10 12/23/17 07:10 12/23/17 07:10 12/23/17 07:10 12/20/17 21:26 Temp Pulse Resp BP Pulse Ox 97.7 F 97 H 20 116/76 97 12/24/17 07:08 12/24/17 07:08 12/24/17 07:08 12/24/17 07:08 12/20/17 21:26 Temp Pulse Resp BP Pulse Ox 97.8 F 98 H 20 132/81 97 12/25/17 07:17 12/25/17 07:17 12/25/17 07:17 12/25/17 07:17 12/20/17 21:26 DSM 5 Symptoms Update: Rosteta Wang is a 62 yo female with a history of alcohol use disorder and depression who was brought to the ED by her friend after overdosing on Xanax and alcohol. The patient reports being increasingly depressed over the past 2 weeks. She states this is primarily due to her ex- and her fighting. She says they got about a year ago, but they were trying to work things out in October. She says this was going well for a little while until she found out he was with another woman. They then got into a verbal altercation and he left. The patient also says that all of her kids and the grandkid that she raised have taken his side and stopped talking to her. For the past 2 weeks, the patient says she has been staying home in bed all day sleeping and drinking alcohol. She says the only thing she got up to do was feed her dog, who she describes as the only thing she lives for. She says he did not plan to commit suicide, but 2 days ago, after drinking a whole bottle of wine, she started taking Xanax one at a time to feel relief. She then says at one point, she thought I dont care, and she continued to take the pills. She thought about leaving a message with her friend to take care of her dog. When she finished nearly the whole bottle of Xanax (she estimates 20-25 pills), she started feeling physically ill with abdominal pain and nausea, so she called her friend to bring her to the hospital. When asked how she feels about being alive now, she responds, Im not ecstatic but there are things that I need to do like take care of my house. She also says she has mixed feelings about suicide because she was raised [place]. She appears to be remorseful about the event. She currently denies SI. Patient is seen this morning in her room. She appears with good grooming/ hygiene dressed in casual clothing. She says this morning was hard for her as she had a panic attack around 5 AM- she says she has had multiple since being here but this is the first time she has reported it. The patient is feeling a little anxious about going home next week, but she admits that she needs to get back to her life. She also continues to be concerned over the results of her liver ultrasound. She has been sleeping and eating well. She denies withdrawal symptoms, such as tremors. She is observed in the milieu interacting with others ; however, she only has passive participation in groups. The patient is compliant with medications and tolerating them well without side effects. Impression: Major depression disorder Generalized anxiety disorder Alcohol use disorder r/o substance-induced mood disorder r/o adjustment disorder r/o panic disorder Medication Change: Yes (increased Ativan) Medical Record Reviewed: Yes Consults ordered or reviewed: medicine Mental Status Examination - Cognitive Function Orientation: Person, Place, Situation, Time Memory: Intact Attention: WNL Concentration: WNL Association: WNL Fund of Knowledge: WN Decription of patient's judgement and insights: good insight, fair judgment - Mood Mood: Depressed, Anxious - Affect Affect: Constricted (at times reactive) - Speech Speech: Appropriate - Formal Thought Process Formal Thought Process: No Impairment, Other (thought process is over inclusive) - Suicidal Ideation Suicidal Ideation: No - Homicidal Ideation Homicidal Ideation: No Goal/Treatment Plan - Goal/Treatment Plan Need for Continued Stay: Severe depression anxiety, Discharge may exacerbated symptoms, Severe functional impairment Progress Toward Problem(s) and Goals/Treatment Plan: 1. Paxil 20 mg for depression and anxiety 2. Remeron 30 mg qhs prn for mood, sleep, and appetite- not required >3 days 3. Sonata 10 mg qhs prn for sleep- not required >3 days 4. Ativan 2 mg bid, 2 mg qhs for withdrawal, anxiety 3. Ativan 2 mg q6hrs prn for withdrawal, anxiety- required x1 12/25 4. Zofran 4 mg q8hrs prn for nausea- required 12/21, 12/25 5. Protonix 20 mg bid for GERD 5. Maalox 30 mL daily prn for dyspepsia- required 12/21 6. Multivitamin, folic acid 1 mg, thiamine 100 mg daily for chronic alcohol use 7. Medicine consult- recs appreciated Family involvement (cousin) Milieu and group therapy SW consult for discharge planning Patient was educated about risk/benefits and alternatives of medications, coping strategies (safety plan, suicide prevention), relapse prevention, importance of follow up with psychiatrist and therapist, stay away from drugs/ alcohol/smoking. Estimated Date of D/C: 12/28/17 - Smoking Cessation Smoking Cessation Initiated: No Reason for not providing: Patient denies tobacco use. <Gloria Peoples - Last Filed: 12/25/17 15:25> Psychiatric Progress Note - Psychiatric Progress Note DSM 5 Symptoms Update: Agree with assessment and plan, patient is very needy, at the same time there anxious and depressed. He shouldn't was seen by medical team, input appreciated patient complain of panic attacks, shaky, Ativan will be increased back Consults ordered or reviewed: patient complained of sinus pressure, x-ray was ordered by medical team will follow up on results. Goal/Treatment Plan - Goal/Treatment Plan Progress Toward Problem(s) and Goals/Treatment Plan: gree with this assessment and plan
--- NOTE | 2017-12-25 15:12 | RAD ---
Date of service: 12/25/2017 PROCEDURE: Sinuses HISTORY: sinus COMPARISON: TECHNIQUE: Four views FINDINGS: The sinuses are clear. No bony abnormalities seen IMPRESSION: Negative study
[2017-12-26] MEDS: Pantoprazole 20 mg EC Tab PO SCH ×2 (06:16→17:21)
[2017-12-26] MEDS: Lubricant Eye Drops UD OU SCH ×4 (09:39→21:48)
[2017-12-26] MEDS: Multivitamin Therapeutic Tab PO SCH (09:40)
[2017-12-26] MEDS: Tobramycin/Dexamethasone (Tobradex) Opth Sol (2.5 ml) OU SCH (09:42)
--- NOTE | 2017-12-26 12:49 | PN ---
DATE: 12/26/2017 SUBJECTIVE: Patient is in [facility], room 518, bed 1. She was admitted with depression, abdominal pain. Patient has history of recent binge alcoholism. Patient has had anxiety in the past. Patient is seen this morning. She still complains of nausea, abdominal discomfort and some discomfort in the left eye. PHYSICAL EXAMINATION: VITAL SIGNS: This morning, the pulse is 78, blood pressure 100/56, respirations are 20, patient's O2 sat is 98% on room air. HEENT: Head is normocephalic. The eyes appears to be within normal range excepting the fact that she has minimal congestion of the left eye. The conjunctiva is clear and cornea is within normal range. NECK: Thyroid is not enlarged. JVP is flat. Carotid pulses are present. LUNGS: Trachea central. Breath sounds are vesicular. No adventitious sounds. HEART: Normal sinus rhythm. S1, S2 present. No murmurs. CENTRAL NERVOUS SYSTEM: Conscious, rational, oriented. No focal deficits are noted. ABDOMEN: There is some minimal tenderness in the epigastric area. MEDICATIONS: Consist of Ativan 3 times a day and the patient is on Claritin 10 mg daily for allergy. Patient is on folic acid 1 mg daily, thiamine. The patient is on Lipitor. The patient is on Zithromax 250 mg, that is a 5-day course, that will be completed. Patient's TobraDex to the eye will be reduced to just 1 drop in each eye from now on to the next few days. She is also getting TriCor 145 mg daily because of elevation of triglycerides. ASSESSMENT AND PLAN: Patient also has elevation of cholesterol. We will follow up on that. Repeat the chemistry on the patient. Condition seemed to be clinically improving, but patient still has some acute symptoms. We will follow up. Vale Puentes MD
--- NOTE | 2017-12-26 13:30 | PCM.PYCHPN ---
Psychiatric Progress Note - Psychiatric Progress Note Patient seen today, length of contact: 30 mins Patient Chief Complaint: "I had another panic attack" Problems Identified/Issues Discussed: Suicide/ homicide prevention, past psychiatric h/o, current psychiatric symptoms , medical problems, risk/benefits and alternatives of medications, medications compliance, coping strategies, substance abuse h/o, relapse prevention, importance of follow up with psychiatrist and therapist, discharge plan. Medical Problems: patient was seen by medical team, consult appreciated, please see notes more detailed information Diagnostic Results: Vital Signs Temp Pulse Resp BP Pulse Ox 12/22/17 06:56 98 F 67 19 130/82 12/21/17 07:38 98.1 F 70 20 119/80 12/21/17 05:24 18 12/20/17 21:26 85 18 128/81 97 12/20/17 17:23 90 18 128/81 98 12/20/17 15:45 90 18 130/84 97 12/20/17 12:54 98.7 F 108 H 17 118/95 H 99 12/20/17 12:25 98.6 F 152 H 20 106/72 99 XR of sinus is WNL DSM 5 Symptoms Update: Rosetta Wang is a 62 yo female with a history of alcohol use disorder and depression who was brought to the ED by her friend after overdosing on Xanax and alcohol. please see initial assessment for more detailed information. pt was seen and examined in her room, patient still withdrawn, self isolative, patient tolerates medications well, at times patient has nausea, no vomiting no diarrhea, patient had x-ray of the sinuses, came back within normal limits, patient reported that she had another panic attack at the nighttime, reports that she scared for discharge, patient reported her depression is still there but "I have future plans, I want to put my life back together". As per staff patient is visible on the unit, trying to attend groups. Patient seems to have good med compliance, no agitation or aggression. patient tolerates medications well, no side effects observed or reported, aims 0 , no EPS. Impression: Major depression disorder Generalized anxiety disorder Alcohol use disorder r/o substance-induced mood disorder r/o adjustment disorder r/o panic disorder Medication Change: Yes (Paxil increased) Medical Record Reviewed: Yes Consults ordered or reviewed: patient complained of sinus pressure, x-ray came back within normal limits Mental Status Examination - Cognitive Function Orientation: Person, Place, Situation, Time Memory: Intact Attention: WNL Concentration: WNL Association: WNL Fund of Knowledge: WNL - Mood Mood: Depressed, Anxious - Affect Affect: Constricted (at times reactive) - Speech Speech: Appropriate - Formal Thought Process Formal Thought Process: No Impairment, Other (thought process is over inclusive) - Suicidal Ideation Suicidal Ideation: No - Homicidal Ideation Homicidal Ideation: No Goal/Treatment Plan - Goal/Treatment Plan Need for Continued Stay: Severe depression anxiety, Discharge may exacerbated symptoms, Severe functional impairment Progress Toward Problem(s) and Goals/Treatment Plan: 1. Paxil 40 mg for depression and anxiety 2. Remeron 30 mg qhs prn for mood, sleep, and appetite- not required >3 days 3. Sonata 10 mg qhs prn for sleep- not required >3 days 4. Ativan 2 mg bid, 2 mg qhs for withdrawal, anxiety 3. Ativan 2 mg q6hrs prn for withdrawal, anxiety- required x1 12/25 4. Zofran 4 mg q8hrs prn for nausea- required 12/21, 12/25 5. Protonix 20 mg bid for GERD 5. Maalox 30 mL daily prn for dyspepsia- required 12/21 6. Multivitamin, folic acid 1 mg, thiamine 100 mg daily for chronic alcohol use 7. Medicine consult- recs appreciated Family involvement (cousin) Milieu and group therapy SW consult for discharge planning Patient was educated about risk/benefits and alternatives of medications, coping strategies (safety plan, suicide prevention), relapse prevention, importance of follow up with psychiatrist and therapist, stay away from drugs/ alcohol/smoking. Estimated Date of D/C: 12/28/17
[2017-12-27] MEDS: Pantoprazole 20 mg EC Tab PO SCH ×2 (06:05→17:19)
[2017-12-27 07:47] LABS: BASO # 0.03 K/mm3 (0.0-2.0); BASO % 0.6 % (0.0-3.0); EOS # 0.2 (0.0-0.7); EOS % 2.8 % (1.5-5.0); GRAN # 2.76 (1.4-6.5); GRAN % 51.7 % (50.0-68.0); HEMOGLOBIN 11.4 g/dL (12.0-16.0); LYMPH # 1.9 (1.2-3.4); LYMPH % 34.8 % (22.0-35.0); MEAN CELL VOLUME 95.4 fl (80.0-105.0); MEAN CORPUSCULAR HGB CONC 32.5 g/dl (31.0-37.0); MEAN PLATELET VOLUME 10.2 fl (7.0-11.0); MONO # 0.5 (0.1-0.6); MONO % 10.1 % (1.0-6.0); RBC 3.68 10^6/uL (3.5-6.1); RED CELL DISTRIBUTION WIDTH 16.3 % (11.5-14.5); WHITE BLOOD COUNT 5.3 10^3/ul (4.5-11.0)
[2017-12-27 08:16] LABS: ALB/GLOB RATIO 1.2 (1.1-1.8); ALBUMIN 3.8 g/dL (3.0-4.8); ALT/SGPT 55 U/L (7-56); AST/SGOT 79 U/L (14-36); BLOOD UREA NITROGEN 14 mg/dL (7-21); CALCIUM 9.7 mg/dL (8.4-10.5); GFR AFRICAN-AMERICAN > 60; GFR NON-AFRICAN AMERICAN > 60; HDL CHOLESTEROL 59 mg/dL (29-60)
[2017-12-27 08:19] LABS: LDL CHOLESTEROL 110 mg/dL (0-129)
[2017-12-27] MEDS: Tobramycin/Dexamethasone (Tobradex) Opth Sol (2.5 ml) OU SCH (09:04)
[2017-12-27] MEDS: Multivitamin Therapeutic Tab PO SCH (09:06)
--- NOTE | 2017-12-27 10:47 | PCM.PYCHPN ---
Psychiatric Progress Note - Psychiatric Progress Note Patient seen today, length of contact: 30 mins Patient Chief Complaint: "I feel overwhelmed about discharge" Problems Identified/Issues Discussed: Suicide/ homicide prevention, past psychiatric h/o, current psychiatric symptoms , medical problems, risk/benefits and alternatives of medications, medications compliance, coping strategies, substance abuse h/o, relapse prevention, importance of follow up with psychiatrist and therapist, discharge plan. Medical Problems: patient was seen by medical team, consult appreciated, please see notes more detailed information Diagnostic Results: Vital Signs Temp Pulse Resp BP Pulse Ox 12/22/17 06:56 98 F 67 19 130/82 12/21/17 07:38 98.1 F 70 20 119/80 12/21/17 05:24 18 12/20/17 21:26 85 18 128/81 97 12/20/17 17:23 90 18 128/81 98 12/20/17 15:45 90 18 130/84 97 12/20/17 12:54 98.7 F 108 H 17 118/95 H 99 12/20/17 12:25 98.6 F 152 H 20 106/72 99 XR of sinus is WNL 12/27/17 07:00 12/27/17 07:00 Lab Results 12/27/17 07:00: Sodium 147, Potassium 4.4, Chloride 105, Carbon Dioxide 31, Anion Gap 15, BUN 14, Creatinine 0.8, Est GFR ( Amer) > 60, Est GFR (Non- Af Amer) > 60, Random Glucose 94, Calcium 9.7, Total Bilirubin 0.7, AST 79 H, ALT 55, Alkaline Phosphatase 72, Total Protein 7.0, Albumin 3.8, Globulin 3.2, Albumin/Globulin Ratio 1.2, Triglycerides 79, Cholesterol 203 H, LDL Cholesterol Direct 110, HDL Cholesterol 59 12/27/17 07:00: WBC 5.3, RBC 3.68, Hgb 11.4 L D, Hct 35.1 L, MCV 95.4 D, MCH 31.0, MCHC 32.5, RDW 16.3 H, Plt Count 320, MPV 10.2, Gran % 51.7, Lymph % (Auto ) 34.8, [place] % (Auto) 10.1 H, Eos % (Auto) 2.8, Baso % (Auto) 0.6, Gran # 2.76, Lymph # (Auto) 1.9, [place] # (Auto) 0.5, Eos # (Auto) 0.2, Baso # (Auto) 0.03 12/24/17 07:45: Sodium 145, Potassium 4.5, Chloride 106, Carbon Dioxide 32, Anion Gap 12, BUN 10, Creatinine 0.8, Est GFR ( Amer) > 60, Est GFR (Non- Af Amer) > 60, Random Glucose 91, Calcium 9.3, Total Bilirubin 0.8, AST 95 H, ALT 56, Alkaline Phosphatase 87, Total Protein 6.5, Albumin 3.4, Globulin 3.1, Albumin/Globulin Ratio 1.1 12/23/17 07:30: Sodium 145, Potassium 4.3, Chloride 104, Carbon Dioxide 30, Anion Gap 15, BUN 9, Creatinine 0.8, Est GFR ( Amer) > 60, Est GFR (Non- Af Amer) > 60, Random Glucose 111 H, Calcium 9.4, Total Bilirubin 1.0, Direct Bilirubin 0.4, AST 101 H D, ALT 53, Alkaline Phosphatase 116, Total Protein 7.1 , Albumin 3.8, Globulin 3.3, Albumin/Globulin Ratio 1.1 12/22/17 21:15: Urine Color Yellow, Urine Appearance Clear, Urine pH 6.0, Ur Specific [place] <= 1.005, Urine Protein Negative, Urine Glucose (UA) Negative, Urine Ketones Negative, Urine Blood Trace-intact H, Urine Nitrate Negative, Urine Bilirubin Negative, Urine Urobilinogen 0.2, Ur Leukocyte Esterase Negative , Urine RBC 0 - 2, Urine WBC Negative, Ur Epithelial Cells None, Urine Bacteria None 12/22/17 07:00: Sodium 144, Potassium 3.3 L, Chloride 103, Carbon Dioxide 31, Anion Gap 14, BUN 6 L, Creatinine 0.8, Est GFR ( Amer) > 60, Est GFR (Non -Af Amer) > 60, Random Glucose 98, Calcium 8.9 12/21/17 07:00: Hemoglobin A1c 5.4 12/21/17 07:00: Triglycerides 1532 H, Cholesterol 294 H, LDL Cholesterol Direct < 30, HDL Cholesterol 31 12/20/17 13:34: Urine Opiates Screen Negative, Urine Methadone Screen Negative, Ur Barbiturates Screen Negative, Ur Phencyclidine Scrn Negative, Ur Amphetamines Screen Negative, U Benzodiazepines Scrn Positive H, U Oth Cocaine Metabols Negative, U Cannabinoids Screen Negative 12/20/17 13:34: Urine Color Dark yellow, Urine Appearance Sl cloudy, Urine pH 6.0, Ur Specific [place] >= 1.030, Urine Protein 100 H, Urine Glucose (UA) Negative, Urine Ketones 15 H, Urine Blood Moderate H, Urine Nitrate Negative, Urine Bilirubin Moderate H, Urine Urobilinogen 4.0 H, Ur Leukocyte Esterase Trace H, Urine RBC 0 - 2, Urine WBC 1 - 3, Ur Epithelial Cells 1 - 3, Urine Bacteria Few 12/20/17 13:20: Alcohol, Quantitative < 10 12/20/17 12:50: Salicylates < 1 L, Acetaminophen < 10.0 L 12/20/17 12:50: Sodium 139, Potassium 3.5 L, Chloride 98, Carbon Dioxide 23, Anion Gap 21 H, BUN 12, Creatinine 0.8, Est GFR ( Amer) > 60, Est GFR ( Non-Af Amer) > 60, Random Glucose 136 H, Calcium 8.7, Total Bilirubin 3.5 H, AST 172 H, ALT 47, Alkaline Phosphatase 176 H, Total Protein 7.9, Albumin 4.0, Globulin 3.9, Albumin/Globulin Ratio 1.0 L 12/20/17 12:50: PT 11.7, INR 1.02, APTT 29.8 12/20/17 12:50: WBC 6.4, RBC 4.62, Hgb 15.0, Hct 41.3, MCV 89.4, MCH 32.5, MCHC 36.3, RDW 14.8 H, Plt Count 228, MPV 9.6, Gran % 71.3 H, Lymph % (Auto) 21.0 L, [place] % (Auto) 6.9 H, Eos % (Auto) 0.3 L, Baso % (Auto) 0.5, Gran # 4.55, Lymph # (Auto) 1.3, [place] # (Auto) 0.4, Eos # (Auto) 0.0, Baso # (Auto) 0.03 Temp Pulse Resp BP Pulse Ox 99.7 F H 76 18 141/83 97 12/27/17 07:04 12/27/17 07:04 12/27/17 07:04 12/27/17 07:04 12/20/17 21:26 DSM 5 Symptoms Update: Rosetta Wang is a 62 yo female with a history of alcohol use disorder and depression who was brought to the ED by her friend after overdosing on Xanax and alcohol. please see initial assessment for more detailed information. pt was seen and examined in her room, patient still withdrawn, anxious, patient tolerates medications well, at times patient has nausea, no vomiting no diarrhea , patient had x-ray of the sinuses, came back within normal limits, patient reported that she had another panic attack at the nighttime, reports that she scared for discharge, patient reported her depression is still there but "I have future plans, I want to put my life back together". pt reported feeling hopeless and overwhelmed about d/c, will hold it for Thursday. As per staff patient is visible on the unit, trying to attend groups. Patient seems to have good med compliance, no agitation or aggression. patient tolerates medications well, no side effects observed or reported, aims 0 , no EPS. Impression: Major depression disorder Generalized anxiety disorder Alcohol use disorder r/o substance-induced mood disorder r/o adjustment disorder r/o panic disorder Medication Change: Yes (remeron increased) Medical Record Reviewed: Yes Consults ordered or reviewed: patient complained of sinus pressure, x-ray came back within normal limits Mental Status Examination - Cognitive Function Orientation: Person, Place, Situation, Time Memory: Intact Attention: WNL Concentration: WNL Association: [facility] Fund of Knowledge: WN - Mood Mood: Depressed ("I feel overwhelmed), Anxious ("I am very anxious") - Affect Affect: Constricted (at times reactive) - Speech Speech: Appropriate - Formal Thought Process Formal Thought Process: No Impairment - Suicidal Ideation Suicidal Ideation: No - Homicidal Ideation Homicidal Ideation: No Goal/Treatment Plan - Goal/Treatment Plan Need for Continued Stay: Severe depression anxiety, Discharge may exacerbated symptoms, Severe functional impairment Progress Toward Problem(s) and Goals/Treatment Plan: 1. Paxil 40 mg for depression and anxiety 2. Remeron 45 mg qhs prn for mood, sleep, and appetite- not required >3 days 3. Sonata 10 mg qhs prn for sleep- not required >3 days 4. Ativan 2 mg bid, 2 mg qhs for withdrawal, anxiety 3. Ativan 2 mg q6hrs prn for withdrawal, anxiety- required x1 12/25 4. Zofran 4 mg q8hrs prn for nausea- required 12/21, 12/25 5. Protonix 20 mg bid for GERD 5. Maalox 30 mL daily prn for dyspepsia- required 12/21 6. Multivitamin, folic acid 1 mg, thiamine 100 mg daily for chronic alcohol use 7. Medicine consult- recs appreciated Family involvement (cousin) Milieu and group therapy SW consult for discharge planning Patient was educated about risk/benefits and alternatives of medications, coping strategies (safety plan, suicide prevention), relapse prevention, importance of follow up with psychiatrist and therapist, stay away from drugs/ alcohol/smoking. Estimated Date of D/C: 12/29/17
[2017-12-27] MEDS: Lubricant Eye Drops UD OU SCH ×4 (10:57→22:05)
--- NOTE | 2017-12-27 12:24 | PN ---
DATE: 12/27/2017 SUBJECTIVE: She is in Behavioral Care Unit, room 518, bed 1. Patient was admitted with depression. Patient has acute bout of alcohol abuse. She also has history of coronary artery disease, hypertension, hyperlipidemia. Patient is seen this morning. The patient's condition, she seems to have some congestion in the nasal area from chronic and acute allergy. Patient has mild irritation of the left eye. Patient had eye infection recently, she has been placed on TobraDex. Patient is feeling better. PHYSICAL EXAMINATION: VITAL SIGNS: This morning, patient's pulse is 76, blood pressure 140/80, patient's respirations are 18, temperature 99.7. HEENT: Head is normocephalic. The left eye shows evidence of congestion. There is also nasal congestion noted. NECK: Thyroid is not enlarged. No lymph nodes are present in the neck, supraclavicular fossa. LUNGS: Trachea central. Breath sounds are vesicular. No adventitious sounds are heard. HEART: Normal sinus rhythm. S1 and S2 present. ABDOMEN: Soft. Liver and spleen not palpable. No evidence of any localizing tenderness. Patient does have some abdominal discomfort, which is nonspecific. She also has nausea that she complains on and off. CENTRAL NERVOUS SYSTEM: No focal neurological deficits. MEDICATIONS: The patient is on Ativan 3 times a day and patient gets Claritin for allergy, folic acid, thiamine. Patient is on Maalox, Protonix. She gets Remeron 30 mg at night, Sonata 10 mg at night. The patient was also placed on Z-Ish for upper respiratory infection. LABORATORY DATA: The patient's blood work was done recently. The hemoglobin is 11.4, it had dropped from 15, but the patient does not have any bleeding episode at this time. The patient's chemistry; AST is mildly elevated ____; all other parameters are in good shape. The patient's triglyceride was elevated to 1500, currently the triglyceride is ____. Patient has been placed on TriCor 145 mg. We will reduce her dose of TriCor because it has markedly decrease the triglyceride level. The patient's cholesterol was 294, it is 203 currently. ASSESSMENT AND PLAN: We will continue current management and follow up. Vale Puentes MD [facility] # [id number]
[2017-12-28] MEDS: Pantoprazole 20 mg EC Tab PO SCH ×2 (06:18→15:42)
[2017-12-28] MEDS: Tobramycin/Dexamethasone (Tobradex) Opth Sol (2.5 ml) OU SCH (08:22)
[2017-12-28] MEDS: Lubricant Eye Drops UD OU SCH ×4 (08:22→21:25)
[2017-12-28] MEDS: Multivitamin Therapeutic Tab PO SCH (08:23)
--- NOTE | 2017-12-28 11:58 | PCM.BM ---
Treatment Plan Problems - Problems identified on initial assessmt Anxiety Date Initiated: 12/20/17 Time Initiated: 22:00 Assessment reference: NA Status: Active Hoplesness Date Initiated: 12/20/17 Time Initiated: 22:00 Assessment reference: NA Status: Active Treatment assets and liabiliti Patient Assests: cooperative, ADL independent, good interpersonal skills Patient Liabilities: poor support system - Milieu Protocol Maintain good personal hygiene: daily Encourage regular showers, daily Remind patient to perform daily oral care, daily Assist patient to perform ADL's Maintain personal safety: daily Educate patient to report safety concerns to staff, daily Monitor environment for contraband/sharps Medication safety: Monitor for expected outcome, potential side effects: daily, Assess barriers to learning: daily, Assess readiness for medication education: daily Milieu Narrative: 1. Paxil 40 mg for depression and anxiety 2. Remeron 45 mg qhs prn for mood, sleep, and appetite- not required >3 days 3. Sonata 10 mg qhs prn for sleep- not required >3 days 4. Ativan 2 mg bid, 2 mg qhs for withdrawal, anxiety 3. Ativan 2 mg q6hrs prn for withdrawal, anxiety- required x1 12/25 4. Zofran 4 mg q8hrs prn for nausea- required 12/21, 12/25 5. Protonix 20 mg bid for GERD 5. Maalox 30 mL daily prn for dyspepsia- required 12/21 6. Multivitamin, folic acid 1 mg, thiamine 100 mg daily for chronic alcohol use 7. Medicine consult- recs appreciated Family involvement (cousin) Milieu and group therapy SW consult for discharge planning Patient was educated about risk/benefits and alternatives of medications, coping strategies (safety plan, suicide prevention), relapse prevention, importance of follow up with psychiatrist and therapist, stay away from drugs/ alcohol/smoking. Family Contact Family involvement: Famliy/SO not involved Discharge/Continuing Care - Education Needs Education Needs: Patient Medication, Patient Diagnosis/Disease Process, Patient Coping Skills - Discharge Discharge Criteria: Free of Suicidal thoughts, Normal sleep pattern - Treatment Team Participation Patient/Family/SO Statement: 1. Paxil 40 mg for depression and anxiety 2. Remeron 45 mg qhs prn for mood, sleep, and appetite- not required >3 days 3. Sonata 10 mg qhs prn for sleep- not required >3 days 4. Ativan 2 mg bid, 2 mg qhs for withdrawal, anxiety 3. Ativan 2 mg q6hrs prn for withdrawal, anxiety- required x1 12/25 4. Zofran 4 mg q8hrs prn for nausea- required 12/21, 12/25 5. Protonix 20 mg bid for GERD 5. Maalox 30 mL daily prn for dyspepsia- required 12/21 6. Multivitamin, folic acid 1 mg, thiamine 100 mg daily for chronic alcohol use 7. Medicine consult- recs appreciated Family involvement (cousin) Milieu and group therapy SW consult for discharge planning Patient was educated about risk/benefits and alternatives of medications, coping strategies (safety plan, suicide prevention), relapse prevention, importance of follow up with psychiatrist and therapist, stay away from drugs/ alcohol/smoking. Treatment Plan Review - Problem Anxiety Time Initiated: 22:00 Hoplesness Time Initiated: 22:00
--- NOTE | 2017-12-28 12:02 | PCM.BM ---
<Desi Monson - Last Filed: 12/28/17 12:00> Treatment Plan Problems - Problems identified on initial assessmt Anxiety Date Initiated: 12/20/17 (12/28 LESS ANXIOUS AND LESS TEARFUL,SOME PANIC ATTAKS AT NIGHT) Time Initiated: 22:00 Assessment reference: NA Status: Active Hoplesness Date Initiated: 12/20/17 Time Initiated: 22:00 Date resolved: 12/28/17 Assessment reference: NA Status: Active Treatment assets and liabiliti Patient Assests: cooperative, ADL independent, good interpersonal skills Patient Liabilities: poor support system - Milieu Protocol Maintain good personal hygiene: daily Encourage regular showers, daily Remind patient to perform daily oral care, daily Assist patient to perform ADL's Maintain personal safety: daily Educate patient to report safety concerns to staff, daily Monitor environment for contraband/sharps Medication safety: Monitor for expected outcome, potential side effects: daily, Assess barriers to learning: daily, Assess readiness for medication education: daily Milieu Narrative: 1. Paxil 40 mg for depression and anxiety 2. Remeron 45 mg qhs prn for mood, sleep, and appetite- not required >3 days 3. Sonata 10 mg qhs prn for sleep- not required >3 days 4. Ativan 2 mg bid, 2 mg qhs for withdrawal, anxiety 3. Ativan 2 mg q6hrs prn for withdrawal, anxiety- required x1 12/25 4. Zofran 4 mg q8hrs prn for nausea- required 12/21, 12/25 5. Protonix 20 mg bid for GERD 5. Maalox 30 mL daily prn for dyspepsia- required 12/21 6. Multivitamin, folic acid 1 mg, thiamine 100 mg daily for chronic alcohol use 7. Medicine consult- recs appreciated Family involvement (cousin) Milieu and group therapy SW consult for discharge planning Patient was educated about risk/benefits and alternatives of medications, coping strategies (safety plan, suicide prevention), relapse prevention, importance of follow up with psychiatrist and therapist, stay away from drugs/ alcohol/smoking. Family Contact Family involvement: Famliy/SO not involved Discharge/Continuing Care - Education Needs Education Needs: Patient Medication, Patient Diagnosis/Disease Process, Patient Coping Skills - Discharge Discharge Criteria: Free of Suicidal thoughts, Normal sleep pattern - Treatment Team Participation Patient/Family/SO Statement: 1. Paxil 40 mg for depression and anxiety 2. Remeron 45 mg qhs prn for mood, sleep, and appetite- not required >3 days 3. Sonata 10 mg qhs prn for sleep- not required >3 days 4. Ativan 2 mg bid, 2 mg qhs for withdrawal, anxiety 3. Ativan 2 mg q6hrs prn for withdrawal, anxiety- required x1 12/25 4. Zofran 4 mg q8hrs prn for nausea- required 12/21, 12/25 5. Protonix 20 mg bid for GERD 5. Maalox 30 mL daily prn for dyspepsia- required 12/21 6. Multivitamin, folic acid 1 mg, thiamine 100 mg daily for chronic alcohol use 7. Medicine consult- recs appreciated Family involvement (cousin) Milieu and group therapy SW consult for discharge planning Patient was educated about risk/benefits and alternatives of medications, coping strategies (safety plan, suicide prevention), relapse prevention, importance of follow up with psychiatrist and therapist, stay away from drugs/ alcohol/smoking. Treatment Plan Review - Problem Anxiety Time Initiated: 22:00 Hoplesness Time Initiated: 22:00 <Gloria Peoples - Last Filed: 12/28/17 14:58> - Diagnosis (1) MDD (major depressive disorder) Status: Acute Interventions: 12/28/17 14:22 depression improving better coping denied si/hi has future oriented plans tolerated meds well (2) Alcohol use disorder Status: Acute Interventions: 12/28/17 14:23 wants to keep sobriety does not want to be on naltrexone (3) DESTINEE (generalized anxiety disorder) Status: Acute Interventions: 12/28/17 14:33 pt still anxious, but it is mostly due to her discharge but "I feel much better"
--- NOTE | 2017-12-28 15:01 | PCM.PYCHPN ---
Psychiatric Progress Note - Psychiatric Progress Note Patient seen today, length of contact: 30 mins Patient Chief Complaint: "I feel anxious about discharge, but I know I need to face the reality" Problems Identified/Issues Discussed: Suicide/ homicide prevention, past psychiatric h/o, current psychiatric symptoms , medical problems, risk/benefits and alternatives of medications, medications compliance, coping strategies, substance abuse h/o, relapse prevention, importance of follow up with psychiatrist and therapist, discharge plan. Medical Problems: patient was seen by medical team, consult appreciated, please see notes more detailed information Diagnostic Results: Vital Signs Temp Pulse Resp BP Pulse Ox 12/22/17 06:56 98 F 67 19 130/82 12/21/17 07:38 98.1 F 70 20 119/80 12/21/17 05:24 18 12/20/17 21:26 85 18 128/81 97 12/20/17 17:23 90 18 128/81 98 12/20/17 15:45 90 18 130/84 97 12/20/17 12:54 98.7 F 108 H 17 118/95 H 99 12/20/17 12:25 98.6 F 152 H 20 106/72 99 XR of sinus is WNL 12/27/17 07:00 12/27/17 07:00 Lab Results 12/27/17 07:00: Sodium 147, Potassium 4.4, Chloride 105, Carbon Dioxide 31, Anion Gap 15, BUN 14, Creatinine 0.8, Est GFR ( Amer) > 60, Est GFR (Non- Af Amer) > 60, Random Glucose 94, Calcium 9.7, Total Bilirubin 0.7, AST 79 H, ALT 55, Alkaline Phosphatase 72, Total Protein 7.0, Albumin 3.8, Globulin 3.2, Albumin/Globulin Ratio 1.2, Triglycerides 79, Cholesterol 203 H, LDL Cholesterol Direct 110, HDL Cholesterol 59 12/27/17 07:00: WBC 5.3, RBC 3.68, Hgb 11.4 L D, Hct 35.1 L, MCV 95.4 D, MCH 31.0, MCHC 32.5, RDW 16.3 H, Plt Count 320, MPV 10.2, Gran % 51.7, Lymph % (Auto ) 34.8, [place] % (Auto) 10.1 H, Eos % (Auto) 2.8, Baso % (Auto) 0.6, Gran # 2.76, Lymph # (Auto) 1.9, [place] # (Auto) 0.5, Eos # (Auto) 0.2, Baso # (Auto) 0.03 12/24/17 07:45: Sodium 145, Potassium 4.5, Chloride 106, Carbon Dioxide 32, Anion Gap 12, BUN 10, Creatinine 0.8, Est GFR ( Amer) > 60, Est GFR (Non- Af Amer) > 60, Random Glucose 91, Calcium 9.3, Total Bilirubin 0.8, AST 95 H, ALT 56, Alkaline Phosphatase 87, Total Protein 6.5, Albumin 3.4, Globulin 3.1, Albumin/Globulin Ratio 1.1 12/23/17 07:30: Sodium 145, Potassium 4.3, Chloride 104, Carbon Dioxide 30, Anion Gap 15, BUN 9, Creatinine 0.8, Est GFR ( Amer) > 60, Est GFR (Non- Af Amer) > 60, Random Glucose 111 H, Calcium 9.4, Total Bilirubin 1.0, Direct Bilirubin 0.4, AST 101 H D, ALT 53, Alkaline Phosphatase 116, Total Protein 7.1 , Albumin 3.8, Globulin 3.3, Albumin/Globulin Ratio 1.1 12/22/17 21:15: Urine Color Yellow, Urine Appearance Clear, Urine pH 6.0, Ur Specific [place] <= 1.005, Urine Protein Negative, Urine Glucose (UA) Negative, Urine Ketones Negative, Urine Blood Trace-intact H, Urine Nitrate Negative, Urine Bilirubin Negative, Urine Urobilinogen 0.2, Ur Leukocyte Esterase Negative , Urine RBC 0 - 2, Urine WBC Negative, Ur Epithelial Cells None, Urine Bacteria None 12/22/17 07:00: Sodium 144, Potassium 3.3 L, Chloride 103, Carbon Dioxide 31, Anion Gap 14, BUN 6 L, Creatinine 0.8, Est GFR ( Amer) > 60, Est GFR (Non -Af Amer) > 60, Random Glucose 98, Calcium 8.9 12/21/17 07:00: Hemoglobin A1c 5.4 12/21/17 07:00: Triglycerides 1532 H, Cholesterol 294 H, LDL Cholesterol Direct < 30, HDL Cholesterol 31 12/20/17 13:34: Urine Opiates Screen Negative, Urine Methadone Screen Negative, Ur Barbiturates Screen Negative, Ur Phencyclidine Scrn Negative, Ur Amphetamines Screen Negative, U Benzodiazepines Scrn Positive H, U Oth Cocaine Metabols Negative, U Cannabinoids Screen Negative 12/20/17 13:34: Urine Color Dark yellow, Urine Appearance Sl cloudy, Urine pH 6.0, Ur Specific [place] >= 1.030, Urine Protein 100 H, Urine Glucose (UA) Negative, Urine Ketones 15 H, Urine Blood Moderate H, Urine Nitrate Negative, Urine Bilirubin Moderate H, Urine Urobilinogen 4.0 H, Ur Leukocyte Esterase Trace H, Urine RBC 0 - 2, Urine WBC 1 - 3, Ur Epithelial Cells 1 - 3, Urine Bacteria Few 12/20/17 13:20: Alcohol, Quantitative < 10 12/20/17 12:50: Salicylates < 1 L, Acetaminophen < 10.0 L 12/20/17 12:50: Sodium 139, Potassium 3.5 L, Chloride 98, Carbon Dioxide 23, Anion Gap 21 H, BUN 12, Creatinine 0.8, Est GFR ( Amer) > 60, Est GFR ( Non-Af Amer) > 60, Random Glucose 136 H, Calcium 8.7, Total Bilirubin 3.5 H, AST 172 H, ALT 47, Alkaline Phosphatase 176 H, Total Protein 7.9, Albumin 4.0, Globulin 3.9, Albumin/Globulin Ratio 1.0 L 12/20/17 12:50: PT 11.7, INR 1.02, APTT 29.8 12/20/17 12:50: WBC 6.4, RBC 4.62, Hgb 15.0, Hct 41.3, MCV 89.4, MCH 32.5, MCHC 36.3, RDW 14.8 H, Plt Count 228, MPV 9.6, Gran % 71.3 H, Lymph % (Auto) 21.0 L, [place] % (Auto) 6.9 H, Eos % (Auto) 0.3 L, Baso % (Auto) 0.5, Gran # 4.55, Lymph # (Auto) 1.3, [place] # (Auto) 0.4, Eos # (Auto) 0.0, Baso # (Auto) 0.03 Temp Pulse Resp BP Pulse Ox 99.7 F H 76 18 141/83 97 12/27/17 07:04 12/27/17 07:04 12/27/17 07:04 12/27/17 07:04 12/20/17 21:26 DSM 5 Symptoms Update: Rosetta Wang is a 62 yo female with a history of alcohol use disorder and depression who was brought to the ED by her friend after overdosing on Xanax and alcohol. please see initial assessment for more detailed information. pt was seen and examined at the treatment team meeting, patient reported feeling anxious about discharge, but at the same time pt said "I feel much better, I know I need to face the reality and do what I need to do". pt adamantly denied thoughts of harming self or others. pt became emotional but not crying, pt was appreciative, said that her cousin will stay with her. As per staff patient is visible on the unit, trying to attend groups. Patient seems to have good med compliance, no agitation or aggression. patient tolerates medications well, no side effects observed or reported, aims 0 , no EPS. Impression: Major depression disorder Generalized anxiety disorder Alcohol use disorder r/o substance-induced mood disorder r/o adjustment disorder r/o panic disorder Medication Change: No (remeron increased yesterday) Medical Record Reviewed: Yes Mental Status Examination - Cognitive Function Orientation: Person, Place, Situation, Time Memory: Intact Attention: WNL Concentration: WNL Association: WNL Fund of Knowledge: WNL - Mood Mood: Depressed ("I know that I need to face the reality, I think I am ready"), Anxious ("I am very anxious, but it is expected") - Affect Affect: Constricted (at times reactive) - Speech Speech: Appropriate - Formal Thought Process Formal Thought Process: No Impairment - Suicidal Ideation Suicidal Ideation: No - Homicidal Ideation Homicidal Ideation: No Goal/Treatment Plan - Goal/Treatment Plan Need for Continued Stay: Severe depression anxiety, Discharge may exacerbated symptoms, Severe functional impairment Progress Toward Problem(s) and Goals/Treatment Plan: 1. Paxil 40 mg for depression and anxiety 2. Remeron 45 mg qhs prn for mood, sleep, and appetite- not required >3 days 3. Sonata 10 mg qhs prn for sleep- not required >3 days 4. Ativan 2 mg bid, 2 mg qhs for withdrawal, anxiety 3. Ativan 2 mg q6hrs prn for withdrawal, anxiety- required x1 12/25 4. Zofran 4 mg q8hrs prn for nausea- required 12/21, 12/25 5. Protonix 20 mg bid for GERD 5. Maalox 30 mL daily prn for dyspepsia- required 12/21 6. Multivitamin, folic acid 1 mg, thiamine 100 mg daily for chronic alcohol use 7. Medicine consult- recs appreciated Family involvement (cousin) Milieu and group therapy SW consult for discharge planning Patient was educated about risk/benefits and alternatives of medications, coping strategies (safety plan, suicide prevention), relapse prevention, importance of follow up with psychiatrist and therapist, stay away from drugs/ alcohol/smoking. Estimated Date of D/C: 12/29/17
--- NOTE | 2017-12-28 23:56 | PN ---
DATE: 12/28/2017 LOCATION: The patient is in [facility], room 518, bed 1. SUBJECTIVE: The patient was admitted with depression, abdominal pain. The patient was found to have a past history of depression. The patient has had history of being on alcohol binge with depression. The patient has history of hypertension, coronary artery disease. The patient also has history of abdominal pain, gastritis. The patient was seen this morning. She is feeling better. Her condition is improving. She still feels depressed, but much improved. PHYSICAL EXAMINATION: VITAL SIGNS: The pulse is 130, blood pressure 116/82, respirations are 18 per minute. HEENT: The patient was normocephalic. NECK: Thyroid is not enlarged. JVP is flat. Face, the patient has mild congestion in the eyes. Her conjunctivitis has improved. She was treated with TobraDex. HEART: Normal sinus rhythm. ABDOMEN: Soft. Liver and spleen not palpable. ASSISTANT CLINICAL DIRECTOR: No focal deficits are noted. The patient also had upper respiratory infection for which she had received Z-Ish. MEDICATIONS: Consist of Ativan. The patient is on folic acid, Lipitor. The patient is on Paxil 40 mg daily. The patient is on pantoprazole 20 mg and the patient is on TriCor. The patient was on sleeping pill, which is Sonata. The patient is on Remeron 40 mg at bedtime, multivitamin and the patient is on eye drops, which will be discontinued. The patient is on TriCor. We will reduce the dose from 145 mg to 48 mg. She is waiting to be discharged tomorrow, so she can go home and follow up as an outpatient. The patient's condition has improved. She is clinically stable at this time and she has medical condition, which she will follow up with her medical doctor and should also go to see the Behavioral Care Unit doctor for mental illness. The patient's diet is 2 g sodium heart-healthy diet. We will follow up in the morning and then she will be on Protonix 20 mg daily. The patient will be on Lipitor 20 mg daily. The patient will be on TriCor 48 mg daily. The patient will continue other psychiatric medications that will be prescribed to her by the Behavioral Care physician. The patient was advised to stay at home alcohol and to follow up with psychological treatment. Vale Puentes MD [facility] # [id number]
[2017-12-29] MEDS: Pantoprazole 20 mg EC Tab PO SCH (06:14)
[2017-12-29 07:26] VITALS: BP 121/71; PULSE 81; RESP 20; TEMP 98.4
[2017-12-29] MEDS: Multivitamin Therapeutic Tab PO SCH (07:53)
[2017-12-29] MEDS: Tobramycin/Dexamethasone (Tobradex) Opth Sol (2.5 ml) OU SCH (07:55)
[2017-12-29] MEDS: Lubricant Eye Drops UD OU SCH (07:55)
[2017-12-29 08:01] LABS: HDL CHOLESTEROL 58 mg/dL (29-60)
[2017-12-29 08:12] LABS: LDL CHOLESTEROL 101 mg/dL (0-129)
--- NOTE | 2017-12-29 12:59 | PN ---
DATE: 12/29/2017 LOCATION: The patient is in [facility], room 518, bed 1, Behavioral Care Unit. SUBJECTIVE: The patient was admitted with abdominal pain, depression, suicidal tendency, alcoholism. The patient is waiting to be discharged to today from inpatient care. The patient will be followed up by the Behavioral Care Unit and the medical doctors as an outpatient. She is very nervous being going home. She states she has nobody at home at this time. PHYSICAL EXAMINATION: VITAL SIGNS: The patient's pulse is 81, blood pressure , respirations are 20, O2 sat is 98% on room air. HEENT: The patient's head is normocephalic. The face appears normal. NECK: The thyroid is not enlarged. LUNGS: Trachea central. Breath sounds are vesicular. No adventitious sounds. HEART: Normal sinus rhythm. S1, S2 present. No murmurs. LAPPING MACHINE OPERATOR: No focal neurological deficits. MEDICATIONS: Consists of vitamins. The patient is getting multivitamin. The patient is on Ativan. The patient is on Lipitor. The patient is on Paxil. The patient is on Protonix and sleeping medication, Remeron 45 mg at night. ASSESSMENT AND PLAN: The patient's blood work was repeated this morning to check lipid levels, because triglycerides were remarkably elevated at the time of admission and it has been reduced to subnormal levels. At this point, we will decrease the dose of fenofibrate and give only 48 mg daily and the patient will get Lipitor 10 mg daily. The patient's prognosis is guarded and that patient needs follow-up treatment and clinically, she is stable. Vale Puentes MD
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
== END 2017-12-29 13:37 | disposition home or self-care (01) | DRG 881 ==
LOC: ED 12:10 → ERH 19:52 → PSYC 21:59
PROVIDERS: ADMIT Psychiatry & Neurology Psychiatry; ATTEND Psychiatry & Neurology Psychiatry
DX: F32.9 Major depressive disorder, single episode, unspecified (principal); F11.20 Opioid dependence, uncomplicated; F41.1 Generalized anxiety disorder; F10.20 Alcohol dependence, uncomplicated; E78.00 Pure hypercholesterolemia, unspecified; E78.1 Pure hyperglyceridemia; E78.5 Hyperlipidemia, unspecified; E87.6 Hypokalemia; F13.10 Sedative, hypnotic or anxiolytic abuse, uncomplicated; F41.0 Panic disorder [episodic paroxysmal anxiety]; H10.9 Unspecified conjunctivitis; I10 Essential (primary) hypertension; I25.10 Atherosclerotic heart disease of native coronary artery without angina pectoris; K21.9 Gastro-esophageal reflux disease without esophagitis; L40.50 Arthropathic psoriasis, unspecified; T42.4X1A Poisoning by benzodiazepines, accidental (unintentional), initial encounter; Z79.899 Other long term (current) drug therapy; Z80.3 Family history of malignant neoplasm of breast; Z81.8 Family history of other mental and behavioral disorders; Z91.19 Patient's noncompliance with other medical treatment and regimen; Z91.5 Personal history of self-harm